=== PATIENT | female | born 1970 | race American Indian/Alaskan Native ===

== ENCOUNTER 2016-08-05 10:18 | Observation (INO) | payer OTHER ==
--- NOTE | 2016-08-05 10:25 | EDM.PDOC ---
ED HISTORY OF PRESENT ILLNESS - General Chief Complaint: Neuro Symptoms/Deficits Stated Complaint: BY AMBULANCE Time Seen by Provider: 08/05/16 10:25 Source of Information: Reports: Patient, EMS, Old records, RN, RN notes reviewed History Limitations: Reports: No limitations - History of Present Illness INITIAL COMMENTS - FREE TEXT/NARRATIVE: Arrives from work by ambulance with c/o sudden onset of right facial droop with slurred speech, and right arm not "working right". Sx's were resolved by the time the ambulance arrived, but pt then had lower chest/epigastric pain with nausea and felt the need to belch. EMS gave Aspirin 324mg po x1 and Nitro. 0.4mg SL x2 without relief. Pt denies headache, dizziness, palpitations, or edema. Pt was symptom free on arrival to the ER. Symptom Onset Date: 08/05/16 Symptom Onset Time: 09:00 Timing/Duration: Reports: Resolved prior to arrival Location, General: Reports: face, upper extremity, right Improves with: Reports: None Worsens with: Reports: None Context, General: Denies: Activity, Exercise, Lifting, Sick contact, Trauma Associated Symptoms (General): Reports: no other symptoms Treatments GRAVEDIGGER: Reports: Aspirin, EKG, IV/IO, Nitroglycerin - Related Data Allergies/ADRs: Allergies Allergy/AdvReac Type Severity Reaction Status Date / Time sulfamethoxazole Allergy Stomach Verified 08/05/16 11:17 [From Bactrim] Upset trimethoprim [From Bactrim] Allergy Stomach Verified 08/05/16 11:17 Upset Home Meds: Home Meds . [No Known Home Meds] 05/26/16 [History] Past Medical History Endocrine/Metabolic History: Reports: Obesity/BMI 30+ - Infectious Disease History Infectious Disease History: Reports: Chicken pox, Mumps Social & Family History - Family History Cardiac: Reports: CAD (parents) Neurological: Reports: CVA (mother) - Tobacco Use Smoking Status *Q: Never Smoker Second Hand Smoke Exposure: No - Caffeine Use Caffeine Use: Reports: Soda - Alcohol Use Days Per Week of Alcohol Use: 0 - Recreational Drug Use Recreational Drug Use: No - Living Situation & Occupation Living situation: Reports: single, with family Occupation: employed ED ROS GENERAL - Review of Systems Review Of Systems: ROS reveals no pertinent complaints other than HPI. ED EXAM, GENERAL - Physical Exam Exam: See Below Exam Limited By: No limitations General Appearance: alert, WD/WN, no apparent distress, anxious, obese Eye Exam: bilateral eye: EOMI, normal fundi, normal inspection, PERRL Ears: normal external exam, normal canal, hearing grossly normal, normal TMs Nose: normal inspection, normal mucosa, no blood Throat/Mouth: Normal inspection, Normal lips, Normal teeth, Normal gums, Normal oropharynx, Normal voice, No airway compromise Head: atraumatic, normocephalic Neck: normal inspection, supple, non-tender, full range of motion Respiratory/Chest: no respiratory distress, lungs clear, normal breath sounds, no accessory muscle use, chest non-tender Cardiovascular: normal peripheral pulses, regular rate, rhythm, no edema, no gallop, no JVD, no murmur, no rub GI/Abdominal: normal bowel sounds, soft, non tender, no distention, other ( benign obese abdomen) (Female) Exam: Deferred Rectal (Female) Exam: Deferred Back Exam: normal inspection Extremities: normal inspection, normal range of motion, non-tender, normal capillary refill, no pedal edema Neurological: alert, oriented, CN II-XII intact, normal cognition, normal gait, no motor/sensory deficits Psychiatric: normal affect, normal mood, anxious Skin Exam: Warm, Dry, Intact, Normal color, No rash EKG INTERPRETATION EKG Date: 08/05/16 Time: 10:41 Rhythm: other (SR with ventricular trigeminy) Rate (beats/min): 74 [place]: normal P-wave: present QRS: normal ST-T: normal QT: normal Comparison: NA - no prior EKG EKG Interpretation Comments: No acute ischemic changes. Course - Vital Signs Last Recorded V/S: Last Vital Signs Temp 36.2 C 08/05/16 10:40 Pulse 76 08/05/16 11:46 Resp 16 08/05/16 11:46 BP 126/53 L 08/05/16 11:46 Pulse Ox 98 08/05/16 11:46 - Orders/Labs/Meds Orders: Active Orders 24 hr Category Date Time Status EKG 12 Lead [EKG Documentation Completion] [RC] STAT Care 08/05/16 10:25 Active Peripheral IV Care [RC] . DIRECTED Care 08/05/16 10:26 Active Chest 1V Frontal [CR] Stat Exams 08/05/16 10:25 Taken Head wo Cont [CT] Stat Exams 08/05/16 10:26 Taken Ondansetron [Zofran] Med 08/05/16 12:01 Once 4 mg IV ONETIME ONE Sodium Chloride 0.9% [Saline Flush] Med 08/05/16 10:25 Active 10 ml FLUSH ASDIRECTED PRN Peripheral IV Insertion Adult [OM.PC] Stat Oth 08/05/16 10:25 Ordered Medication Orders Sodium Chloride (Saline Flush) 10 ml FLUSH ASDIRECTED PRN PRN Reason: Keep Vein Open Last Admin: 08/05/16 10:48 Dose: 10 ml Labs: Laboratory Tests 08/05/16 08/05/16 08/05/16 Range/Units 10:45 10:45 10:45 WBC 9.7 (5.0-10.0) 10^3/uL RBC 4.52 (4.2-5.4) 10^6/uL Hgb 12.7 (12.0-16.0) g/dL Hct 40.0 (37.0-47.0) % MCV 88.5 (80-100) fL MCH 28.1 (27.0-34.0) pg MCHC 31.8 L (33.0-35.0) g/dL Plt Count 240 (150-450) 10^3/uL Neut % (Auto) 60.0 (42.2-75.2) % Lymph % (Auto) 28.8 (20.5-50.1) % [place] % (Auto) 9.0 H (2-8) % Eos % (Auto) 1.9 (1.0-3.0) % Baso % (Auto) 0.3 (0.0-1.0) % PT 10.5 (9.0-12.0) SEC INR 1.0 (0.9-1.2) APTT 32.4 (22.0-34.0) SEC D-Dimer, Quantitative 110 (0-400) ng/mL Sodium 139 (135-145) mmol/L Potassium 4.0 (3.6-5.0) mmol/L Chloride 101 (101-111) mmol/L Carbon Dioxide 31.0 (21.0-31.0) mmol/L Anion Gap 11.0 BUN 16 (7-18) mg/dL Creatinine 0.7 (0.6-1.3) mg/dL Est Cr Clr Drug Dosing 83.07 mL/min Estimated GFR (MDRD) > 60 BUN/Creatinine Ratio 22.85 Glucose 114 H (74-105) mg/dL Calcium 9.0 (8.4-10.2) mg/dl Total Bilirubin 0.4 (0.2-1.0) mg/dL AST 22 (10-42) IU/L ALT 19 (10-60) IU/L Alkaline Phosphatase 60 (42-121) IU/L Troponin I < 0.02 (0.00-0.02) ng/ml Total Protein 7.5 (6.7-8.2) g/dl Albumin 3.8 (3.2-5.5) g/dl Globulin 3.7 Albumin/Globulin Ratio 1.03 Urine Color (YELLOW) Urine Appearance (CLEAR) Urine pH (5.0-9.0) Ur Specific [place] (1.005-1.030) Urine Protein (NEGATIVE) Urine Glucose (UA) (NEGATIVE) Urine Ketones (NEGATIVE) Urine Occult Blood (NEGATIVE) Urine Nitrite (NEGATIVE) Urine Bilirubin (NEGATIVE) Urine Urobilinogen (0.2-1.0) mg/dL Ur Leukocyte Esterase (NEGATIVE) Urine RBC /HPF Urine WBC (0-5/HPF) /HPF Ur Epithelial Cells /HPF Urine Bacteria (0-FEW/HPF) /HPF Urine Mucus /LPF Urine HCG, Qual Urine Opiates Screen (NEGATIVE) Ur Oxycodone Screen (NEGATIVE) Urine Methadone Screen (NEGATIVE) Ur Barbiturates Screen (NEGATIVE) U Tricyclic Antidepress (NEGATIVE) Ur Phencyclidine Scrn (NEGATIVE) Ur Amphetamine Screen (NEGATIVE) U Methamphetamines Scrn (NEGATIVE) Urine MDMA Screen (NEGATIVE) U Benzodiazepines Scrn (NEGATIVE) Urine Cocaine Screen (NEGATIVE) U Marijuana (THC) Screen (NEGATIVE) Ethyl Alcohol < 5 mg/dL 08/05/16 08/05/16 08/05/16 Range/Units 11:00 11:00 11:00 WBC (5.0-10.0) 10^3/uL RBC (4.2-5.4) 10^6/uL Hgb (12.0-16.0) g/dL Hct (37.0-47.0) % MCV (80-100) fL MCH (27.0-34.0) pg MCHC (33.0-35.0) g/dL Plt Count (150-450) 10^3/uL Neut % (Auto) (42.2-75.2) % Lymph % (Auto) (20.5-50.1) % [place] % (Auto) (2-8) % Eos % (Auto) (1.0-3.0) % Baso % (Auto) (0.0-1.0) % PT (9.0-12.0) SEC INR (0.9-1.2) APTT (22.0-34.0) SEC D-Dimer, Quantitative (0-400) ng/mL Sodium (135-145) mmol/L Potassium (3.6-5.0) mmol/L Chloride (101-111) mmol/L Carbon Dioxide (21.0-31.0) mmol/L Anion Gap BUN (7-18) mg/dL Creatinine (0.6-1.3) mg/dL Est Cr Clr Drug Dosing mL/min Estimated GFR (MDRD) BUN/Creatinine Ratio Glucose (74-105) mg/dL Calcium (8.4-10.2) mg/dl Total Bilirubin (0.2-1.0) mg/dL AST (10-42) IU/L ALT (10-60) IU/L Alkaline Phosphatase (42-121) IU/L Troponin I (0.00-0.02) ng/ml Total Protein (6.7-8.2) g/dl Albumin (3.2-5.5) g/dl Globulin Albumin/Globulin Ratio Urine Color Yellow (YELLOW) Urine Appearance Cloudy (CLEAR) Urine pH 6.0 (5.0-9.0) Ur Specific [place] 1.025 (1.005-1.030) Urine Protein Negative (NEGATIVE) Urine Glucose (UA) Negative (NEGATIVE) Urine Ketones Negative (NEGATIVE) Urine Occult Blood Negative (NEGATIVE) Urine Nitrite Negative (NEGATIVE) Urine Bilirubin Negative (NEGATIVE) Urine Urobilinogen 0.2 (0.2-1.0) mg/dL Ur Leukocyte Esterase Negative (NEGATIVE) Urine RBC 0-5 /HPF Urine WBC 0-5 (0-5/HPF) /HPF Ur Epithelial Cells Many H /HPF Urine Bacteria Few (0-FEW/HPF) /HPF Urine Mucus Many H /LPF Urine HCG, Qual Negative Urine Opiates Screen Negative (NEGATIVE) Ur Oxycodone Screen Negative (NEGATIVE) Urine Methadone Screen Negative (NEGATIVE) Ur Barbiturates Screen Negative (NEGATIVE) U Tricyclic Antidepress Negative (NEGATIVE) Ur Phencyclidine Scrn Negative (NEGATIVE) Ur Amphetamine Screen Negative (NEGATIVE) U Methamphetamines Scrn Negative (NEGATIVE) Urine MDMA Screen Negative (NEGATIVE) U Benzodiazepines Scrn Negative (NEGATIVE) Urine Cocaine Screen Negative (NEGATIVE) U Marijuana (THC) Screen Negative (NEGATIVE) Ethyl Alcohol mg/dL Meds: Medications Generic Name Dose Route Start Last Admin Trade Name Freq PRN Reason Stop Dose Admin Sodium Chloride 10 ml 08/05/16 10:25 08/05/16 10:48 Saline Flush FLUSH 10 ml ASDIRECTED PRN Administration Keep Vein Open - Radiology Interpretation Free Text/Narrative:: CT Head: no acute process per Rad. report. CXR: no acute process per Rad. report. CT Results Date: 08/05/16 Departure - Departure Time of Disposition: 11:56 (admit to Dr. Argueta) Disposition: Refer to Observation Condition: undetermined Clinical Impression: TIA (transient ischemic attack) Qualifiers: Transient cerebral ischemia type: unspecified Qualified Code(s): G45.9 - Transient cerebral ischemic attack, unspecified Forms: ED Department Discharge - My Orders Last 24 Hours: My Active Orders 08/05/16 10:25 EKG 12 Lead [EKG Documentation Completion] [RC] STAT Chest 1V Frontal [CR] Stat Sodium Chloride 0.9% [Saline Flush] 10 ml FLUSH ASDIRECTED PRN Peripheral IV Insertion Adult [OM.PC] Stat 08/05/16 10:26 Peripheral IV Care [RC] . DIRECTED Head wo Cont [CT] Stat 08/05/16 12:01 Ondansetron [Zofran] 4 mg IV ONETIME ONE - Assessment/Plan Last 24 Hours: My Active Orders 08/05/16 10:25 EKG 12 Lead [EKG Documentation Completion] [RC] STAT Chest 1V Frontal [CR] Stat Sodium Chloride 0.9% [Saline Flush] 10 ml FLUSH ASDIRECTED PRN Peripheral IV Insertion Adult [OM.PC] Stat 08/05/16 10:26 Peripheral IV Care [RC] . DIRECTED Head wo Cont [CT] Stat 08/05/16 12:01 Ondansetron [Zofran] 4 mg IV ONETIME ONE
[2016-08-05] MEDS: Sodium Chloride 0.9% 10 ML Syringe FLUSH PRN ×2 (10:48→20:20)
[2016-08-05 11:12] LABS: CHLORIDE,CL 101 mmol/L (101-111); SODIUM,NA 139 mmol/L (135-145)
[2016-08-05] MEDS ORDERED: Ondansetron 4 MG/2 ML SDV IV ONE (12:01)
--- NOTE | 2016-08-05 13:19 | CT ---
CLINICAL HISTORY: 45-year-old female numb face, slurred speech and right arm weakness. SCAN TECHNIQUE: Volume acquisition of data from an emergency unenhanced CT scan of the head obtained with the patient lying supine on the Siemens multislice CT scanner [place], [place]. All data archived in the PACS system for storage and study (bone/brain windows). INTERPRETATION: Uniformly thick bony calvarium and dense calcifications falx over the convexity midl ine. No sign of skull fracture, underlying brain contusion or epidural/subdural hematoma. Symmetric clear pneumatization of the mastoid and paranasal sinuses. Nasal septum is straight in the midline. No supratentorial or posterior fossa mass lesion. No hydrocephalus. No focal areas of ischemic infarct or signs of intracerebral/intraventricular/subarachnoid bleed. Cerebellum and brainstem unremarkable. CONCLUSION: No sign of intracranial mass, ischemic infarct or acute intracranial bleed.
--- NOTE | 2016-08-05 13:19 | CR ---
CLINICAL HISTORY: 45-year-old female with chest pain, slurred speech and right arm weakness. INTERPRETATION: Negative exam. AP portable chest film confirms normal cardiac silhouette without alveolar edema or dependent effusi on. No lung mass, hilar lymphadenopathy or focal lobar pneumonia. No pneumothorax.
--- NOTE | 2016-08-05 13:53 | PCM.HP ---
H&P History of Present Illness - General Date of Service: 08/05/16 Admit Problem/Dx: Admission Diagnosis/Problem Admission Diagnosis/Problem Numbness of hand Source of Information: Patient - History of Present Illness Initial Comments - Free Text/Narative: Patient is a 45 year old females was admitted due to episode of numbness and tinling of the right upper extremity and the right side of the face. This happened around 9:30 am, she was just standing and suddenly her right upper extremity was numbness and tingling as well as the right side of the face. this spontaneously went away and then recurred, cannot recall the trigger. SHe was noted to be slurring her speech as well and was advised by a friend to go to ER. she denies history of similar symptoms. denies history of stroke. hypertension nor diabetes. denies recent head injury nor any neck pain. denies choking on food, denies similar symptom on the right lower leg, no weakness no recent falls. during the episode, she had episode of chest pain which also subsequently went away on its own. Middle Chest Pain Score (Numeric/FACES): 3 - Related Data Allergies/Adverse Reactions: Allergies Allergy/AdvReac Type Severity Reaction Status Date / Time sulfamethoxazole Allergy Stomach Verified 08/05/16 11:17 [From Bactrim] Upset trimethoprim [From Bactrim] Allergy Stomach Verified 08/05/16 11:17 Upset Home Medications: Home Meds . 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 MOUNTER History: Reports: None Musculoskeletal History: Reports: None Neurological History: Reports: Other (see below) Other Neuro History: powell's palsy Psychiatric History: Reports: None Endocrine/Metabolic History: Reports: Obesity/BMI 30+ Hematologic History: Reports: None Immunologic History: Reports: None Oncologic (Cancer) History: Reports: None Dermatologic History: Reports: Other (see below) Other Dermatologic History: rosacea - Infectious Disease History Infectious Disease History: Reports: Chicken pox, Mumps - Past Surgical History GI Surgical History: Reports: None Female Surgical History: Reports: None Musculoskeletal Surgical History: Reports: None Social & Family History - Family History Family Medical History: Noncontributory Cardiac: Reports: CAD, Stent Respiratory: Reports: None GI: Reports: None Neurological: Reports: CVA Endocrine/Metabolic: Reports: Diabetes, type II - Tobacco Use Smoking Status *Q: Never Smoker Second Hand Smoke Exposure: No - Caffeine Use Caffeine Use: Reports: Soda, Tea - Alcohol Use Days Per Week of Alcohol Use: 0 - Recreational Drug Use Recreational Drug Use: No - Living Situation & Occupation Living situation: Reports: single, with family Occupation: employed H&P Review of Systems - Review of Systems: Review Of Systems: See Below General: Reports: no symptoms HEENT: Reports: no symptoms Pulmonary: Reports: No Symptoms Cardiovascular: Reports: no symptoms Gastrointestinal: Reports: No symptoms 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: Reports: no symptoms Musculoskeletal: Reports: no symptoms Skin: Reports: no symptoms Neurological: Reports: Dizziness Exam - Exam Exam: See Below - Vital Signs Vital Signs: Last Vital Signs Temp 37.1 C 08/05/16 12:59 Pulse 72 08/05/16 12:59 Resp 20 08/05/16 12:59 BP 124/80 08/05/16 12:59 Pulse Ox 100 08/05/16 12:59 Weight: 123.649 kg - Exam General: alert, oriented Neck: supple Lungs: Clear to auscultation, Normal respiratory effort Cardiovascular: regular rate, other (occasional extra beats) Abdomen: normal bowel sounds, soft Extremities: normal inspection, edema (trace) Neurological: cranial nerves intact, other (no pronator drift, equal handgrip, equal sensation to touch) Neuro Extensive - Mental Status: alert, oriented x3, normal mood/affect, normal cognition, memory intact Neuro Extensive - Motor, Sensory, Reflexes: CN II-XII intact Psychiatric: alert, normal affect, normal mood - Patient Data Result Diagrams: 08/05/16 10:45 08/05/16 10:45 *Q Meaningful Use (ADM) - VTE *Q VTE Criteria *Q: - Stroke *Q Stroke Criteria *Q: - AMI *Q AMI Criteria *Q: Problem List Initiated/Reviewed/Updated: Yes Orders Last 24hrs: Active Orders 24 hr Category Date Time Status Patient Status [ADT] Routine ADT 08/05/16 12:59 Active Antiembolic Devices [RC] 08,20 Care 08/05/16 13:00 Active Cardiac Monitoring [RC] CONTINUOUS Care 08/05/16 13:00 Active Oxygen Therapy [RC] PRN Care 08/05/16 12:59 Active Up With Assistance [RC] ASDIRECTED Care 08/05/16 12:59 Active VTE/DVT Education [RC] PER UNIT ROUTINE Care 08/05/16 12:59 Active Vital Signs [RC] Q4H Care 08/05/16 12:59 Active OT Evaluation and Treatment [CONS] Routine Cons 08/05/16 13:08 Active Regular Diet [DIET] Diet 08/05/16 Dinner Active Carotid Comp [US] Routine Exams 08/05/16 13:00 Ordered Echo Comp wo Cont [US] Routine Exams 08/05/16 13:01 Ordered Enoxaparin [Lovenox] Med 08/06/16 09:00 Active 40 mg SUBCUT DAILY Antiembolic Hose [OM.PC] Per Unit Routine Oth 08/05/16 13:00 Ordered Medication Orders Enoxaparin Sodium (Lovenox) 40 mg SUBCUT DAILY THU Sodium Chloride (Saline Flush) 10 ml FLUSH ASDIRECTED PRN PRN Reason: Keep Vein Open Last Admin: 08/05/16 10:48 Dose: 10 ml Assessment/Plan Comment:: episode of right sided numbness and tingling which has resolved - consideration for TIA - BP controlled, random sugar mildy out of range - carotid dopples bilateral and echo ordered - swallowing evaluation to be done EKG abnormality - PVCs on bigeminy - cardiac telemetry - check magnesium DVT prophylaxis - lovenox
[2016-08-05] MEDS ORDERED: Aspirin 325 MG Tab PO ONE (16:20)
[2016-08-05] MEDS ORDERED: Enoxaparin 40 MG/0.4 ML Syringe SUBCUT ONE (18:49)
[2016-08-06 07:24] VITALS: BP 129/66
[2016-08-06] MEDS ORDERED: Aspirin 81 MG Tab.Chew PO SCH (08:00)
--- NOTE | 2016-08-06 08:18 | US ---
CLINICAL HISTORY: 45-year-old female with TIA symptomatology ("tingling" both hands). INTERPRETATION: No hemodynamically significant or surgical stenosis either common or internal caroti d artery. Isolated small atheromatous plaque with smooth surface identified at the origin of both internal car otid arteries. Normal antegrade vertebral artery flow present bilaterally. Peak systolic velocity right common carotid artery 128 cm/sec; right internal carotid artery 78 cm/s ec; and right external carotid artery 123 cm/sec. IC/CC ratio on the right 0.6. Peak systolic left common carotid artery 106 cm/sec; left internal carotid artery 75 cm/sec; and lef t external carotid artery 121 cm/sec. IC/CC ratio on the left 0.7. CONCLUSION: Minimal nonulcerated atheromatous plaque. No hemodynamically significant stenosis.
--- NOTE | 2016-08-06 08:47 | PCM.DCSUM1 ---
Discharge Summary - Hospital Course Free Text/Narrative:: the patient is a 45-year-old lady with a history of "extra beats" The patient presented with sudden onset of right upper extremity tingling associated with nausea and chest discomfort Symptoms have completely resolved The patient was admitted for close monitoring The patient remained stable had the occasional tingling in the bilateral arms but no motor deficit, no slurred speech, no headaches The patient on telemetry and had no significant arrhythmia other than PVCs The patient was recommended to start an aspirin Recommended to undergo MR I. of the brain and stress test as outpatient The patient's carotid ultrasound showed no significant stenosis Echocardiogram result is pending - followup with primary care physician for results The patient will be discharged in a stable condition Advised to return promptly if any neurological changes develop - Discharge Data Discharge Date: 08/06/16 Discharge Disposition: Home, Self-Care 01 Condition: Good - Patient Summary/Data Consults: Consultations 08/05/16 13:08 OT Evaluation and Treatment [CONS] Routine - Patient Instructions Diet: Heart Healthy Diet Activity: As Tolerated - Discharge Plan Prescriptions/Med Rec: Aspirin/Calcium Carbonate/Mag [Aspirin Buffered 325 mg Tab] 325 mg PO DAILY #30 tablet Home Medications: Home Meds Aspirin/Calcium Carbonate/Mag [Aspirin Buffered 325 mg Tab] 325 mg PO DAILY #30 tablet 08/06/16 [Rx] Referrals: PCP,Unobtain [Ordering Only Provider] - - General Info Date of Service: 08/06/16 Subjective Update: feeling well, no chest pain, no headache Head occasional feeling of tingling in bilateral extremities, no associated motor weakness Steady on her feet no chest pain, no shortness of breath - Review of Systems General: Denies: Fever Pulmonary: Denies: shortness of breath Cardiovascular: Denies: Chest Pain Gastrointestinal: Denies: Abdominal pain - Patient Data Vitals - Most Recent: Last Vital Signs Temp 36.2 C 08/06/16 07:00 Pulse 67 08/06/16 07:00 Resp 20 08/06/16 07:00 BP 129/66 08/06/16 07:00 Pulse Ox 98 08/06/16 07:00 Weight - Most Recent: 123.649 kg I&O - Last 24 hours: Intake & Output 08/05/16 08/06/16 08/06/16 22:59 06:59 14:59 Intake Total 510 Balance 510 Med Orders - Current: Current Medications Aspirin (Aspirin) 81 mg [facility] Last Admin: 08/06/16 08:40 Dose: 81 mg Enoxaparin Sodium (Lovenox) 40 mg SUBCUT DAILY [facility] Last Admin: 08/06/16 08:40 Dose: 40 mg Sodium Chloride (Saline Flush) 10 ml FLUSH ASDIRECTED PRN PRN Reason: Keep Vein Open Last Admin: 08/05/16 20:20 Dose: 10 ml Discontinued Medications Aspirin (Aspirin) 325 mg PO ONETIME ONE Stop: 08/05/16 16:21 Last Admin: 08/05/16 17:25 Dose: 325 mg Enoxaparin Sodium (Lovenox) 40 mg SUBCUT ONETIME ONE Stop: 08/05/16 18:50 Last Admin: 08/05/16 20:12 Dose: 40 mg Ondansetron HCl (Zofran) 4 mg IV ONETIME ONE Stop: 08/05/16 12:02 Last Admin: 08/05/16 12:09 Dose: 4 mg - Exam General: Reports: alert, oriented Neck: Reports: supple Lungs: Reports: Clear to auscultation, Normal respiratory effort Cardiovascular: Reports: Regular Rate, Other (occasional extra beat) Abdomen: Reports: bowel sounds present, soft, no tenderness Extremities: Reports: no edema Neurological: Reports: no new focal deficit, normal speech, sensation intact, cranial nerves intact Psy/Mental Status: Reports: alert, normal affect, normal mood *Q Meaningful Use (DIS) - VTE *Q VTE Criteria *Q: - Stroke *Q Stroke Criteria *Q: - AMI *Q AMI Criteria *Q:
[2016-08-06] MEDS ORDERED: Enoxaparin 40 MG/0.4 ML Syringe SUBCUT SCH (09:00)
--- NOTE | 2016-08-25 12:57 | EKG ---
08/05/2016- MILTON FARRAR - EKG done on a 45-year-old female showing sinus rhythm with heart rate of 74 beats per minute, normal intervals, PVCs noted. No acute ST-T wave changes. [facility] /[id number] MTDD
== END 2016-08-06 11:30 | disposition home or self-care (01) ==
LOC: DL.ED 10:18 → DL.MS 12:13 → UNDOADMOB 12:13 → DL.MS 12:59
PROVIDERS: ADMIT Internal Medicine; ATTEND Internal Medicine
DX: G45.9 Transient cerebral ischemic attack, unspecified (principal); E66.9 Obesity, unspecified; Z88.1 Allergy status to other antibiotic agents; Z88.2 Allergy status to sulfonamides; Z68.30 Body mass index [BMI] 30.0-30.9, adult; Z79.82 Long term (current) use of aspirin
CPT/HCPCS: 36415; 70450; 71010; 80053; 80305; 81001; 81025; 82962; 83735; 84443; 84484; 85025; 85379; 85610; 85730; 92610; 93005; 93306; 93880; 94010; 96374; 99285; A9270; G0480; J1650; J2405; J7050; 96372; G0378

== ENCOUNTER 2016-08-17 10:00 | Emergency (ER) | payer OTHER ==
--- NOTE | 2016-08-17 10:04 | EDM.PDOC ---
ED HPI GENERAL MEDICAL PROBLEM - General Stated Complaint: BY AMBULANCE Time Seen by Provider: 08/17/16 09:53 Source of Information: Reports: Patient History Limitations: Reports: No Limitations - History of Present Illness INITIAL COMMENTS - FREE TEXT/NARRATIVE: This 45 yo female patient reports to the ED with right sided facial numbness. The patient reports her symptoms started at about 0900 this morning. The patient also reports chest pain 4/10 initially, but did not report chest pain upon arrival in the ED. This patient reports she has been having intermittent similar symptoms over the past week, but they have been more focused on the right arm. The patient reports she has had a carotid ultrasound, a cardiac stress test and an MRI. The patient reports her results are supposed to be back this week. The patient reports some chest "heaviness". The patient was given 1 dose of Nitro by EMS. The patient reports she did take her Aspirin (325). Onset: Today Onset Date: 08/17/16 Onset Time: 09:00 Duration: Constant Location: Reports: Face (right side facial tingling), Chest (4/10 with nausea) Quality: Reports: Dull Severity: Moderate Improves with: Reports: None Worsens with: Reports: None Associated Symptoms: Reports: Chest Pain, Nausea/Vomiting, Other (Tingling on the right side of face) Middle Chest Pain Score (Numeric/FACES): 3 - Related Data Allergies Allergy/AdvReac Type Severity Reaction Status Date / Time sulfamethoxazole Allergy Stomach Verified 08/17/16 10:02 [From Bactrim] Upset trimethoprim [From Bactrim] Allergy Stomach Verified 08/17/16 10:02 Upset Home Meds: Home Meds Aspirin/Calcium Carbonate/Mag [Aspirin Buffered 325 mg Tab] 325 mg PO DAILY #30 tablet 08/06/16 [Rx] Past Medical History Cardiovascular History: Reports: Other (See Below) Other Cardiovascular History: ventricular trigeminy Respiratory History: Reports: None Gastrointestinal History: Reports: None 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 History: Reports: None [employer]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 Musculoskeletal History: Reports: None Neurological History: Reports: Other (See Below) Other Neuro History: powell's palsy Psychiatric History: Reports: None Endocrine/Metabolic History: Reports: Obesity/BMI 30+ Hematologic History: Reports: None Immunologic History: Reports: None Oncologic (Cancer) History: Reports: None Dermatologic History: Reports: Other (See Below) Other Dermatologic History: rosacea - Infectious Disease History Infectious Disease History: Reports: Chicken Pox, Mumps - Past Surgical History GI Surgical History: Reports: None Female Surgical History: Reports: None Musculoskeletal Surgical History: Reports: None Social & Family History - Family History Family Medical History: Noncontributory Cardiac: Reports: CAD, Stent Respiratory: Reports: None GI: Reports: None Neurological: Reports: CVA Endocrine/Metabolic: Reports: Diabetes, type II - Tobacco Use Smoking Status *Q: Never Smoker Second Hand Smoke Exposure: No - Caffeine Use Caffeine Use: Reports: Soda, Tea - Alcohol Use Days Per Week of Alcohol Use: 0 - Recreational Drug Use Recreational Drug Use: No - Living Situation & Occupation Living situation: Reports: Single, with Family Occupation: Employed ED ROS GENERAL - Review of Systems Review Of Systems: ROS reveals no pertinent complaints other than HPI. ED EXAM, NEURO - Physical Exam Exam: See Below Exam Limited By: No Limitations General Appearance: Alert, WD/WN, Anxious, Moderate Distress Eye Exam: Bilateral Eye: EOMI, Normal Inspection, PERRL Ears: Normal External Exam, Normal Canal, Hearing Grossly Normal, Normal TMs Nose: Normal Inspection, Normal Mucosa, No Blood Throat/Mouth: Normal Inspection, Normal Lips, Normal Teeth, Normal Gums, Normal Oropharynx, Normal Voice, No Airway Compromise Head Exam: Atraumatic, Normocephalic Neck: Normal Inspection, Supple, Non-Tender, Full Range of Motion Respiratory/Chest: No Respiratory Distress, Lungs Clear, Normal Breath Sounds, No Accessory Muscle Use, Chest Non-Tender Cardiovascular: No Edema, No Gallop, No JVD, No Murmur, No Rub, Other (Trigeminy ) GI/Abdominal: Normal Bowel Sounds, Soft, Non-Tender, No Organomegaly, No Distention, No Abnormal Bruit, No Mass, Other (obese) (Female) Exam: Deferred Rectal (Female) Exam: Deferred Neurological: Alert, Normal Mood/Affect, Normal Dorsiflexion, CN II-XII Intact, Normal Plantar Flexion, Oriented x 3 Back Exam: Normal Inspection, Full Range of Motion, NT Extremities: Normal Inspection, Normal Range of Motion, Non-Tender, No Pedal Edema, Normal Capillary Refill Psychiatric: Anxious, Flat Affect Skin Exam: Warm, Dry, Intact, Normal Color, No Rash Course - Vital Signs Last Recorded V/S: Last Vital Signs Temp 35.4 C 08/17/16 11:16 Pulse 80 08/17/16 11:16 Resp 21 H 08/17/16 11:16 BP 115/68 08/17/16 11:16 Pulse Ox 100 08/17/16 11:16 - Orders/Labs/Meds Orders: Active Orders 24 hr Category Date Time Status EKG Documentation Completion [RC] URGENT Care 08/17/16 09:46 Active Labs: Laboratory Tests 08/17/16 08/17/16 08/17/16 Range/Units 09:52 10:12 10:12 WBC 9.5 (5.0-10.0) 10^3/uL RBC 4.51 (4.2-5.4) 10^6/uL Hgb 12.6 (12.0-16.0) g/dL Hct 39.7 (37.0-47.0) % MCV 88.0 (80-100) fL MCH 27.9 (27.0-34.0) pg MCHC 31.7 L (33.0-35.0) g/dL Plt Count 228 (150-450) 10^3/uL Neut % (Auto) 63.4 (42.2-75.2) % Lymph % (Auto) 26.3 (20.5-50.1) % [place] % (Auto) 8.4 H (2-8) % Eos % (Auto) 1.7 (1.0-3.0) % Baso % (Auto) 0.2 (0.0-1.0) % PT 9.8 (9.0-12.0) SEC INR 1.0 (0.9-1.2) D-Dimer, Quantitative < 100 (0-400) ng/mL Sodium (135-145) mmol/L Potassium (3.6-5.0) mmol/L Chloride (101-111) mmol/L Carbon Dioxide (21.0-31.0) mmol/L Anion Gap BUN (7-18) mg/dL Creatinine (0.6-1.3) mg/dL Est Cr Clr Drug Dosing mL/min Estimated GFR (MDRD) BUN/Creatinine Ratio Glucose (74-105) mg/dL POC Glucose 106 H (70-105) mg/dl Calcium (8.4-10.2) mg/dl Total Bilirubin (0.2-1.0) mg/dL AST (10-42) IU/L ALT (10-60) IU/L Alkaline Phosphatase (42-121) IU/L Troponin I (0.00-0.02) ng/ml Total Protein (6.7-8.2) g/dl Albumin (3.2-5.5) g/dl Globulin Albumin/Globulin Ratio Urine Color (YELLOW) Urine Appearance (CLEAR) Urine pH (5.0-9.0) Ur Specific [place] (1.005-1.030) Urine Protein (NEGATIVE) Urine Glucose (UA) (NEGATIVE) Urine Ketones (NEGATIVE) Urine Occult Blood (NEGATIVE) Urine Nitrite (NEGATIVE) Urine Bilirubin (NEGATIVE) Urine Urobilinogen (0.2-1.0) mg/dL Ur Leukocyte Esterase (NEGATIVE) Urine RBC /HPF Urine WBC (0-5/HPF) /HPF Ur Epithelial Cells /HPF Urine Mucus /LPF 08/17/16 08/17/16 Range/Units 10:12 10:38 WBC (5.0-10.0) 10^3/uL RBC (4.2-5.4) 10^6/uL Hgb (12.0-16.0) g/dL Hct (37.0-47.0) % MCV (80-100) fL MCH (27.0-34.0) pg MCHC (33.0-35.0) g/dL Plt Count (150-450) 10^3/uL Neut % (Auto) (42.2-75.2) % Lymph % (Auto) (20.5-50.1) % [place] % (Auto) (2-8) % Eos % (Auto) (1.0-3.0) % Baso % (Auto) (0.0-1.0) % PT (9.0-12.0) SEC INR (0.9-1.2) D-Dimer, Quantitative (0-400) ng/mL Sodium 134 L (135-145) mmol/L Potassium 3.4 L (3.6-5.0) mmol/L Chloride 101 (101-111) mmol/L Carbon Dioxide 27.0 (21.0-31.0) mmol/L Anion Gap 9.4 BUN 16 (7-18) mg/dL Creatinine 0.7 (0.6-1.3) mg/dL Est Cr Clr Drug Dosing 83.04 mL/min Estimated GFR (MDRD) > 60 BUN/Creatinine Ratio 22.85 Glucose 111 H (74-105) mg/dL POC Glucose (70-105) mg/dl Calcium 8.7 (8.4-10.2) mg/dl Total Bilirubin 0.3 (0.2-1.0) mg/dL AST 19 (10-42) IU/L ALT 17 (10-60) IU/L Alkaline Phosphatase 57 (42-121) IU/L Troponin I < 0.02 (0.00-0.02) ng/ml Total Protein 7.2 (6.7-8.2) g/dl Albumin 3.7 (3.2-5.5) g/dl Globulin 3.5 Albumin/Globulin Ratio 1.06 Urine Color Yellow (YELLOW) Urine Appearance Slightly cloudy (CLEAR) Urine pH 6.0 (5.0-9.0) Ur Specific [place] 1.020 (1.005-1.030) Urine Protein Negative (NEGATIVE) Urine Glucose (UA) Negative (NEGATIVE) Urine Ketones Negative (NEGATIVE) Urine Occult Blood Negative (NEGATIVE) Urine Nitrite Negative (NEGATIVE) Urine Bilirubin Negative (NEGATIVE) Urine Urobilinogen 0.2 (0.2-1.0) mg/dL Ur Leukocyte Esterase Trace H (NEGATIVE) Urine RBC Not seen /HPF Urine WBC 0-5 (0-5/HPF) /HPF Ur Epithelial Cells Moderate H /HPF Urine Mucus Rare /LPF Departure - Departure Time of Disposition: 11:20 Disposition: Home, Self-Care 01 Condition: fair Clinical Impression: Chest heaviness, Numbness and tingling of right side of face - Discharge Information Forms: Interfacility Transfer EMTALA Care Plan Goals: Discussed the history, examination, lab results, EKG results and CT results were discussed with Dr. Pratt. Dr. Pratt accepted the patient for continued evaluation and treatment as an inpatient at [facility] in [place]. The patient will be transported by [facility]. - My Orders Last 24 Hours: My Active Orders 08/17/16 09:46 EKG Documentation Completion [RC] URGENT - Assessment/Plan Last 24 Hours: My Active Orders 08/17/16 09:46 EKG Documentation Completion [RC] URGENT
--- NOTE | 2016-08-17 10:20 | CR ---
Clinical history: 45-year-old female evaluated for stroke protocol (right facial "tingling"). Interpretation: Negative AP chest film. Normal cardiac silhouette and bony thorax. No alveolar edema or dependent effusion. Reasonable inspiratory effort obese female reveals no sign of lung mass, hilar lymphadenopathy, foca l lobar pneumonia or atelectasis/collapse. No pneumothorax.
--- NOTE | 2016-08-17 10:23 | CT ---
Clinical history: 45-year-old obese female right facial tingling. TECHNIQUE: Volume acquisition of data emergency unenhanced CT scan of the head and brain obtained [facility] patient lying supine on the Siemens multi slice CT scanner [facility]. All data archived in the PACS system for storage, reformatting and study. Interpretation: Uniformly thick bony calvarium without sign of fracture, underlying brain contusion or epidural/subdural hematoma. Dense falx calcifications midline high on the convexity. Physiologic midline pineal and symmetric choroid plexus calcifications. Symmetric clear pneumatization of the mastoid and paranasal sinuses. Symmetric aguirre-white matter pattern and underlying mirror-image normal ventricular system. No supratentorial or posterior fossa mass lesion. No focal areas of ischemic infarct. No sign of acu te intracerebral/intraventricular/subarachnoid bleed CONCLUSION: Negative unenhanced CT scan of the head.
[2016-08-17 10:40] LABS: CHLORIDE,CL 101 mmol/L (101-111); SODIUM,NA 134 mmol/L (135-145)
[2016-08-17 11:17] VITALS: BP 115/68
--- NOTE | 2016-08-18 13:57 | EKG ---
08/17/2016 - MILTON FARRAR I reviewed EKG and agree with the machine's reading. [facility] /[id number]
== END 2016-08-17 12:00 | disposition home or self-care (01) ==
LOC: DL.ED 10:00
DX: R07.89 Other chest pain (principal); R20.0 Anesthesia of skin; R20.2 Paresthesia of skin; E66.9 Obesity, unspecified; Z88.2 Allergy status to sulfonamides; Z79.82 Long term (current) use of aspirin
CPT/HCPCS: 36415; 70450; 71010; 80053; 81001; 82962; 84484; 85025; 85379; 85610; 93005; 99285

== ENCOUNTER 2016-08-29 21:38 | Emergency (ER) | payer OTHER ==
[2016-08-29 22:48] LABS: CHLORIDE,CL 104 mmol/L (101-111); SODIUM,NA 140 mmol/L (135-145)
[2016-08-29 23:08] VITALS: BP 129/65
--- NOTE | 2016-08-29 23:36 | EDM.PDOC ---
ED HPI GENERAL MEDICAL PROBLEM - General Chief Complaint: Neuro Symptoms/Deficits Stated Complaint: EYE PROBLEMS, [id number] Time Seen by Provider: 08/29/16 23:30 Source of Information: Reports: Patient History Limitations: Reports: No Limitations - History of Present Illness INITIAL COMMENTS - FREE TEXT/NARRATIVE: pt states was admitted in [facility] for this problem of TIA/stroke Sx. had w/u and eval ' by Dr Fuller neurologist and d/c home. states she had the right side numbness & tingling & dazed feeling with right REYNOLDS @ [facility] but all they did was put her on plavix. at home her numbness went away but her dazed feelings persisted till tonight when the right sided tingling with numbess and REYNOLDS returned. so came here. states had scheduled her for repeat EEG & MRI in September 08 but doesn't wan to wait till then. 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 Musculoskeletal History: Reports: None Neurological History: Reports: Other (See Below) Other Neuro History: powell's palsy Psychiatric History: Reports: None Endocrine/Metabolic History: Reports: Obesity/BMI 30+ Hematologic History: Reports: None Immunologic History: Reports: None Oncologic (Cancer) History: Reports: None Dermatologic History: Reports: Other (See Below) Other Dermatologic History: rosacea - Infectious Disease History Infectious Disease History: Reports: Chicken Pox, Mumps - Past Surgical History GI Surgical History: Reports: None Female Surgical History: Reports: None Musculoskeletal Surgical History: Reports: None Social & Family History - Family History Family Medical History: Noncontributory Cardiac: Reports: CAD, Stent Respiratory: Reports: None GI: Reports: None Neurological: Reports: CVA Endocrine/Metabolic: Reports: Diabetes, type II - Tobacco Use Smoking Status *Q: Never Smoker Second Hand Smoke Exposure: No - Caffeine Use Caffeine Use: Reports: Soda, Tea - Alcohol Use Days Per Week of Alcohol Use: 0 - Recreational Drug Use Recreational Drug Use: No - Living Situation & Occupation Living situation: Reports: Single, with Family Occupation: Employed ED ROS GENERAL - Review of Systems Review Of Systems: ROS reveals no pertinent complaints other than HPI. ED EXAM, NEURO - Physical Exam Exam: See Below Exam Limited By: No Limitations General Appearance: Alert, WD/WN, Mild Distress, Other (distraught) Eye Exam: Bilateral Eye: PERRL (pupils ess ER @ 4mm) Ears: Hearing Grossly Normal Throat/Mouth: Normal Voice, No Airway Compromise Head Exam: Atraumatic Neck: Non-Tender, Full Range of Motion Respiratory/Chest: No Respiratory Distress Cardiovascular: Regular Rate, Rhythm GI/Abdominal: Soft, Non-Tender Neurological: Alert, Normal Gait, No Motor/Sensory Deficits, Oriented x 3 Psychiatric: Flat Affect Skin Exam: Warm, Dry Course - Vital Signs Last Recorded V/S: Last Vital Signs Temp 35.9 C 08/29/16 21:55 Pulse 80 08/29/16 21:55 Resp 16 08/29/16 21:55 BP 129/65 08/29/16 21:55 Pulse Ox 100 08/29/16 21:55 - Orders/Labs/Meds Orders: Active Orders 24 hr Category Date Time Status Head wo Cont [CT] Urgent Exams 08/29/16 22:02 Taken Labs: Laboratory Tests 08/29/16 08/29/16 08/29/16 Range/Units 22:16 22:16 22:16 WBC 11.4 H (5.0-10.0) 10^3/uL RBC 4.31 (4.2-5.4) 10^6/uL Hgb 12.3 (12.0-16.0) g/dL Hct 38.3 (37.0-47.0) % MCV 88.9 (80-100) fL MCH 28.5 (27.0-34.0) pg MCHC 32.1 L (33.0-35.0) g/dL Plt Count 262 (150-450) 10^3/uL Neut % (Auto) 60.8 (42.2-75.2) % Lymph % (Auto) 28.1 (20.5-50.1) % [place] % (Auto) 8.2 H (2-8) % Eos % (Auto) 2.6 (1.0-3.0) % Baso % (Auto) 0.3 (0.0-1.0) % PT 10.3 (9.0-12.0) SEC INR 1.0 (0.9-1.2) APTT 31.3 (22.0-34.0) SEC Sodium 140 (135-145) mmol/L Potassium 4.2 (3.6-5.0) mmol/L Chloride 104 (101-111) mmol/L Carbon Dioxide 29.0 (21.0-31.0) mmol/L Anion Gap 11.2 BUN 20 H (7-18) mg/dL Creatinine 0.7 (0.6-1.3) mg/dL Est Cr Clr Drug Dosing TNP Estimated GFR (MDRD) > 60 BUN/Creatinine Ratio 28.57 Glucose 110 H (74-105) mg/dL POC Glucose (70-105) mg/dl Calcium 9.2 (8.4-10.2) mg/dl Total Bilirubin 0.3 (0.2-1.0) mg/dL AST 20 (10-42) IU/L ALT 17 (10-60) IU/L Alkaline Phosphatase 56 (42-121) IU/L Troponin I < 0.02 (0.00-0.02) ng/ml Total Protein 7.1 (6.7-8.2) g/dl Albumin 3.7 (3.2-5.5) g/dl Globulin 3.4 Albumin/Globulin Ratio 1.09 Urine Color (YELLOW) Urine Appearance (CLEAR) Urine pH (5.0-9.0) Ur Specific [place] (1.005-1.030) Urine Protein (NEGATIVE) Urine Glucose (UA) (NEGATIVE) Urine Ketones (NEGATIVE) Urine Occult Blood (NEGATIVE) Urine Nitrite (NEGATIVE) Urine Bilirubin (NEGATIVE) Urine Urobilinogen (0.2-1.0) mg/dL Ur Leukocyte Esterase (NEGATIVE) Urine RBC /HPF Urine WBC (0-5/HPF) /HPF Ur Epithelial Cells /HPF Urine Bacteria (0-FEW/HPF) /HPF Urine Mucus /LPF Urine HCG, Qual Urine Opiates Screen (NEGATIVE) Ur Oxycodone Screen (NEGATIVE) Urine Methadone Screen (NEGATIVE) Ur Barbiturates Screen (NEGATIVE) U Tricyclic Antidepress (NEGATIVE) Ur Phencyclidine Scrn (NEGATIVE) Ur Amphetamine Screen (NEGATIVE) U Methamphetamines Scrn (NEGATIVE) Urine MDMA Screen (NEGATIVE) U Benzodiazepines Scrn (NEGATIVE) Urine Cocaine Screen (NEGATIVE) U Marijuana (THC) Screen (NEGATIVE) 08/29/16 08/29/16 08/29/16 Range/Units 22:18 23:42 23:42 WBC (5.0-10.0) 10^3/uL RBC (4.2-5.4) 10^6/uL Hgb (12.0-16.0) g/dL Hct (37.0-47.0) % MCV (80-100) fL MCH (27.0-34.0) pg MCHC (33.0-35.0) g/dL Plt Count (150-450) 10^3/uL Neut % (Auto) (42.2-75.2) % Lymph % (Auto) (20.5-50.1) % [place] % (Auto) (2-8) % Eos % (Auto) (1.0-3.0) % Baso % (Auto) (0.0-1.0) % PT (9.0-12.0) SEC INR (0.9-1.2) APTT (22.0-34.0) SEC Sodium (135-145) mmol/L Potassium (3.6-5.0) mmol/L Chloride (101-111) mmol/L Carbon Dioxide (21.0-31.0) mmol/L Anion Gap BUN (7-18) mg/dL Creatinine (0.6-1.3) mg/dL Est Cr Clr Drug Dosing Estimated GFR (MDRD) BUN/Creatinine Ratio Glucose (74-105) mg/dL POC Glucose 104 (70-105) mg/dl Calcium (8.4-10.2) mg/dl Total Bilirubin (0.2-1.0) mg/dL AST (10-42) IU/L ALT (10-60) IU/L Alkaline Phosphatase (42-121) IU/L Troponin I (0.00-0.02) ng/ml Total Protein (6.7-8.2) g/dl Albumin (3.2-5.5) g/dl Globulin Albumin/Globulin Ratio Urine Color Dark yellow (YELLOW) Urine Appearance Slightly cloudy (CLEAR) Urine pH 6.0 (5.0-9.0) Ur Specific [place] 1.025 (1.005-1.030) Urine Protein Negative (NEGATIVE) Urine Glucose (UA) Negative (NEGATIVE) Urine Ketones Negative (NEGATIVE) Urine Occult Blood Large H (NEGATIVE) Urine Nitrite Negative (NEGATIVE) Urine Bilirubin Negative (NEGATIVE) Urine Urobilinogen 1.0 (0.2-1.0) mg/dL Ur Leukocyte Esterase Trace H (NEGATIVE) Urine RBC 50-75 H /HPF Urine WBC 5-10 H (0-5/HPF) /HPF Ur Epithelial Cells Few /HPF Urine Bacteria Rare (0-FEW/HPF) /HPF Urine Mucus Few H /LPF Urine HCG, Qual Negative Urine Opiates Screen (NEGATIVE) Ur Oxycodone Screen (NEGATIVE) Urine Methadone Screen (NEGATIVE) Ur Barbiturates Screen (NEGATIVE) U Tricyclic Antidepress (NEGATIVE) Ur Phencyclidine Scrn (NEGATIVE) Ur Amphetamine Screen (NEGATIVE) U Methamphetamines Scrn (NEGATIVE) Urine MDMA Screen (NEGATIVE) U Benzodiazepines Scrn (NEGATIVE) Urine Cocaine Screen (NEGATIVE) U Marijuana (THC) Screen (NEGATIVE) 08/29/16 Range/Units 23:42 WBC (5.0-10.0) 10^3/uL RBC (4.2-5.4) 10^6/uL Hgb (12.0-16.0) g/dL Hct (37.0-47.0) % MCV (80-100) fL MCH (27.0-34.0) pg MCHC (33.0-35.0) g/dL Plt Count (150-450) 10^3/uL Neut % (Auto) (42.2-75.2) % Lymph % (Auto) (20.5-50.1) % [place] % (Auto) (2-8) % Eos % (Auto) (1.0-3.0) % Baso % (Auto) (0.0-1.0) % PT (9.0-12.0) SEC INR (0.9-1.2) APTT (22.0-34.0) SEC Sodium (135-145) mmol/L Potassium (3.6-5.0) mmol/L Chloride (101-111) mmol/L Carbon Dioxide (21.0-31.0) mmol/L Anion Gap BUN (7-18) mg/dL Creatinine (0.6-1.3) mg/dL Est Cr Clr Drug Dosing Estimated GFR (MDRD) BUN/Creatinine Ratio Glucose (74-105) mg/dL POC Glucose (70-105) mg/dl Calcium (8.4-10.2) mg/dl Total Bilirubin (0.2-1.0) mg/dL AST (10-42) IU/L ALT (10-60) IU/L Alkaline Phosphatase (42-121) IU/L Troponin I (0.00-0.02) ng/ml Total Protein (6.7-8.2) g/dl Albumin (3.2-5.5) g/dl Globulin Albumin/Globulin Ratio Urine Color (YELLOW) Urine Appearance (CLEAR) Urine pH (5.0-9.0) Ur Specific [place] (1.005-1.030) Urine Protein (NEGATIVE) Urine Glucose (UA) (NEGATIVE) Urine Ketones (NEGATIVE) Urine Occult Blood (NEGATIVE) Urine Nitrite (NEGATIVE) Urine Bilirubin (NEGATIVE) Urine Urobilinogen (0.2-1.0) mg/dL Ur Leukocyte Esterase (NEGATIVE) Urine RBC /HPF Urine WBC (0-5/HPF) /HPF Ur Epithelial Cells /HPF Urine Bacteria (0-FEW/HPF) /HPF Urine Mucus /LPF Urine HCG, Qual Urine Opiates Screen Negative (NEGATIVE) Ur Oxycodone Screen Negative (NEGATIVE) Urine Methadone Screen Negative (NEGATIVE) Ur Barbiturates Screen Negative (NEGATIVE) U Tricyclic Antidepress Negative (NEGATIVE) Ur Phencyclidine Scrn Negative (NEGATIVE) Ur Amphetamine Screen Negative (NEGATIVE) U Methamphetamines Scrn Negative (NEGATIVE) Urine MDMA Screen Negative (NEGATIVE) U Benzodiazepines Scrn Negative (NEGATIVE) Urine Cocaine Screen Negative (NEGATIVE) U Marijuana (THC) Screen Negative (NEGATIVE) - Re-Assessments/Exams Free Text/Narrative Re-Assessment/Exam: 08/29/16 23:37 negative results discussed with Pt who is not happy about it. 08/30/16 00:40 case discussed with [facility] and Dr Kennedy kindly accepted the tranferr. Departure - Departure Time of Disposition: 00:41 Disposition: DC/Tfer to Acute Hospital 02 Condition: good Clinical Impression: Numbness, Numbness and tingling of right side of face - Discharge Information Forms: Interfacility Transfer EMTALA - My Orders Last 24 Hours: My Active Orders 08/29/16 22:02 Head wo Cont [CT] Urgent - Assessment/Plan Last 24 Hours: My Active Orders 08/29/16 22:02 Head wo Cont [CT] Urgent
--- NOTE | 2016-09-02 10:51 | EKG ---
08/29/2016- MILTON FARRAR - EKG per my reading shows sinus rhythm with PVCs. [facility] /[id number]
== END 2016-08-30 01:20 ==
LOC: DL.ED 21:38
DX: R20.0 Anesthesia of skin (principal); R20.2 Paresthesia of skin; Z88.2 Allergy status to sulfonamides; Z88.8 Allergy status to other drugs, medicaments and biological substances; E66.9 Obesity, unspecified
CPT/HCPCS: 36415; 70450; 80053; 80305; 81001; 81025; 82962; 84484; 85025; 85610; 85730; 93005; 99285

== ENCOUNTER 2016-09-11 12:07 | Emergency (ER) | payer OTHER ==
--- NOTE | 2016-09-11 12:24 | EDM.PDOC ---
ED HPI GENERAL MEDICAL PROBLEM - General Chief Complaint: Neurological Problem Stated Complaint: BY AMBULANCE Time Seen by Provider: 09/11/16 12:23 Source of Information: Reports: Patient, Old Records, RN, RN Notes Reviewed History Limitations: Reports: No Limitations - History of Present Illness INITIAL COMMENTS - FREE TEXT/NARRATIVE: Arrives by ambulance with c/o a brief "seizure-like episode" while at work today. Pt has had several of these types of events and has recently undergone extensive neuro. evaluation with Dr. Fuller in [place]. On 09/08/16 pt had an EEG that was normal. On arrival to the ER pt is Sx free. Denies injury. Onset: Today Duration: Resolved Prior to Arrival Location: Reports: Head, Face Severity: Mild Improves with: Reports: None Worsens with: Reports: None Associated Symptoms: Reports: No Other Symptoms Right Headache Pain Score (Numeric/FACES): 4 - Related Data Allergies Allergy/AdvReac Type Severity Reaction Status Date / Time sulfamethoxazole Allergy Stomach Verified 08/17/16 10:02 [From Bactrim] Upset trimethoprim [From Bactrim] Allergy Stomach Verified 08/17/16 10:02 Upset Home Meds: Home Meds Clopidogrel [Plavix] 75 mg PO DAILY 08/29/16 [History] Topiramate [Topamax] 25 mg PO ASDIRECTED 09/11/16 [History] Past Medical History Cardiovascular History: Reports: Other (See Below) Other Cardiovascular History: ventricular trigeminy Respiratory History: Reports: None Gastrointestinal History: Reports: None 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 History: Reports: None 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 Musculoskeletal History: Reports: None Neurological History: Reports: Other (See Below) Other Neuro History: powell's palsy Psychiatric History: Reports: None Endocrine/Metabolic History: Reports: Obesity/BMI 30+ Hematologic History: Reports: None Immunologic History: Reports: None Oncologic (Cancer) History: Reports: None Dermatologic History: Reports: Other (See Below) Other Dermatologic History: rosacea - Infectious Disease History Infectious Disease History: Reports: Chicken Pox, Mumps - Past Surgical History GI Surgical History: Reports: None Female Surgical History: Reports: None Musculoskeletal Surgical History: Reports: None Social & Family History - Family History Family Medical History: Noncontributory Cardiac: Reports: CAD, Stent Respiratory: Reports: None GI: Reports: None Neurological: Reports: CVA Endocrine/Metabolic: Reports: Diabetes, type II - Tobacco Use Smoking Status *Q: Never Smoker Second Hand Smoke Exposure: No - Caffeine Use Caffeine Use: Reports: Soda, Tea - Alcohol Use Days Per Week of Alcohol Use: 0 - Recreational Drug Use Recreational Drug Use: No - Living Situation & Occupation Living situation: Reports: Single, with Family Occupation: Employed ED ROS GENERAL - Review of Systems Review Of Systems: ROS reveals no pertinent complaints other than HPI. - Physical Exam Exam: See Below Exam Limited By: No Limitations General Appearance: Alert, WD/WN, No Apparent Distress, Obese Eye Exam: Bilateral Eye: EOMI, Normal Fundi, Normal Inspection, PERRL Ears: Normal External Exam, Normal Canal, Hearing Grossly Normal, Normal TMs Nose: Normal Inspection, Normal Mucosa, No Blood Throat/Mouth: Normal Inspection, Normal Lips, Normal Teeth, Normal Gums, Normal Oropharynx, Normal Voice, No Airway Compromise Head Exam: Atraumatic, Normocephalic Neck: Normal Inspection, Supple, Non-Tender, Full Range of Motion Respiratory/Chest: No Respiratory Distress, Lungs Clear, Normal Breath Sounds, No Accessory Muscle Use, Chest Non-Tender Cardiovascular: Normal Peripheral Pulses, Regular Rate, Rhythm, No Edema, No Gallop, No JVD, No Murmur, No Rub GI/Abdominal: Normal Bowel Sounds, Soft, Non-Tender, No Distention Neuro Exam (Abbreviated): Alert, Oriented, CN II-XII Intact, Normal Cognition, Normal Gait, No Motor/Sensory Deficits Back Exam: Normal Inspection Extremities: Normal Inspection Psychiatric: Normal Affect, Normal Mood Skin Exam: Warm, Dry, Intact, Normal Color, No Rash EKG INTERPRETATION EKG Date: 09/11/16 Time: 12:27 Rhythm: other (SR) Rate (beats/min): 76 [place]: LAD-left axis deviation (borderline) P-wave: present QRS: normal ST-T: normal QT: normal Comparison: no change Course - Vital Signs Last Recorded V/S: Last Vital Signs Temp 36.3 C 09/11/16 12:20 Pulse 70 09/11/16 13:27 Resp 18 09/11/16 13:27 BP 122/55 L 09/11/16 13:27 Pulse Ox 99 09/11/16 13:27 - Orders/Labs/Meds Orders: Active Orders 24 hr Category Date Time Status EKG 12 Lead [EKG Documentation Completion] [RC] STAT Care 09/11/16 12:33 Active Peripheral IV Care [RC] . DIRECTED Care 09/11/16 12:33 Active Sodium Chloride 0.9% [Saline Flush] Med 09/11/16 12:33 Active 10 ml FLUSH ASDIRECTED PRN Peripheral IV Insertion Adult [OM.PC] Stat Oth 09/11/16 12:33 Ordered Medication Orders Sodium Chloride (Saline Flush) 10 ml FLUSH ASDIRECTED PRN PRN Reason: Keep Vein Open Last Admin: 09/11/16 12:51 Dose: 10 ml Labs: Laboratory Tests 09/11/16 09/11/16 09/11/16 Range/Units 12:43 12:43 12:48 WBC 7.5 (5.0-10.0) 10^3/uL RBC 4.42 (4.2-5.4) 10^6/uL Hgb 12.5 (12.0-16.0) g/dL Hct 39.5 (37.0-47.0) % MCV 89.4 (80-100) fL MCH 28.3 (27.0-34.0) pg MCHC 31.6 L (33.0-35.0) g/dL Plt Count 225 (150-450) 10^3/uL Neut % (Auto) 62.5 (42.2-75.2) % Lymph % (Auto) 23.6 (20.5-50.1) % [place] % (Auto) 10.0 H (2-8) % Eos % (Auto) 3.6 H (1.0-3.0) % Baso % (Auto) 0.3 (0.0-1.0) % Sodium (135-145) mmol/L Potassium (3.6-5.0) mmol/L Chloride (101-111) mmol/L Carbon Dioxide (21.0-31.0) mmol/L Anion Gap BUN (7-18) mg/dL Creatinine (0.6-1.3) mg/dL Est Cr Clr Drug Dosing mL/min Estimated GFR (MDRD) BUN/Creatinine Ratio Glucose (74-105) mg/dL Calcium (8.4-10.2) mg/dl Total Bilirubin (0.2-1.0) mg/dL AST (10-42) IU/L ALT (10-60) IU/L Alkaline Phosphatase (42-121) IU/L Lactate Dehydrogenase (91-180) IU/L Creatine Kinase (26-174) IU/L Total Protein (6.7-8.2) g/dl Albumin (3.2-5.5) g/dl Globulin Albumin/Globulin Ratio Urine Color Yellow (YELLOW) Urine Appearance Cloudy (CLEAR) Urine pH 8.5 (5.0-9.0) Ur Specific [place] 1.015 (1.005-1.030) Urine Protein Negative (NEGATIVE) Urine Glucose (UA) Negative (NEGATIVE) Urine Ketones Negative (NEGATIVE) Urine Occult Blood Negative (NEGATIVE) Urine Nitrite Negative (NEGATIVE) Urine Bilirubin Negative (NEGATIVE) Urine Urobilinogen 0.2 (0.2-1.0) mg/dL Ur Leukocyte Esterase Negative (NEGATIVE) Urine RBC 0-5 /HPF Urine WBC 0-5 (0-5/HPF) /HPF Ur Epithelial Cells Rare /HPF Amorphous Sediment Many H (0/HPF) /HPF Urine Bacteria Rare (0-FEW/HPF) /HPF Urine Opiates Screen Negative (NEGATIVE) Ur Oxycodone Screen Negative (NEGATIVE) Urine Methadone Screen Negative (NEGATIVE) Ur Barbiturates Screen Negative (NEGATIVE) U Tricyclic Antidepress Negative (NEGATIVE) Ur Phencyclidine Scrn Negative (NEGATIVE) Ur Amphetamine Screen Negative (NEGATIVE) U Methamphetamines Scrn Negative (NEGATIVE) Urine MDMA Screen Negative (NEGATIVE) U Benzodiazepines Scrn Negative (NEGATIVE) Urine Cocaine Screen Negative (NEGATIVE) U Marijuana (THC) Screen Negative (NEGATIVE) Ethyl Alcohol mg/dL 09/11/16 Range/Units 12:48 WBC (5.0-10.0) 10^3/uL RBC (4.2-5.4) 10^6/uL Hgb (12.0-16.0) g/dL Hct (37.0-47.0) % MCV (80-100) fL MCH (27.0-34.0) pg MCHC (33.0-35.0) g/dL Plt Count (150-450) 10^3/uL Neut % (Auto) (42.2-75.2) % Lymph % (Auto) (20.5-50.1) % [place] % (Auto) (2-8) % Eos % (Auto) (1.0-3.0) % Baso % (Auto) (0.0-1.0) % Sodium 137 (135-145) mmol/L Potassium 3.4 L (3.6-5.0) mmol/L Chloride 104 (101-111) mmol/L Carbon Dioxide 27.0 (21.0-31.0) mmol/L Anion Gap 9.4 BUN 13 (7-18) mg/dL Creatinine 0.7 (0.6-1.3) mg/dL Est Cr Clr Drug Dosing 83.07 mL/min Estimated GFR (MDRD) > 60 BUN/Creatinine Ratio 18.57 Glucose 148 H (74-105) mg/dL Calcium 8.8 (8.4-10.2) mg/dl Total Bilirubin 0.3 (0.2-1.0) mg/dL AST 25 (10-42) IU/L ALT 20 (10-60) IU/L Alkaline Phosphatase 63 (42-121) IU/L Lactate Dehydrogenase 138 (91-180) IU/L Creatine Kinase 61 (26-174) IU/L Total Protein 7.2 (6.7-8.2) g/dl Albumin 3.7 (3.2-5.5) g/dl Globulin 3.5 Albumin/Globulin Ratio 1.06 Urine Color (YELLOW) Urine Appearance (CLEAR) Urine pH (5.0-9.0) Ur Specific [place] (1.005-1.030) Urine Protein (NEGATIVE) Urine Glucose (UA) (NEGATIVE) Urine Ketones (NEGATIVE) Urine Occult Blood (NEGATIVE) Urine Nitrite (NEGATIVE) Urine Bilirubin (NEGATIVE) Urine Urobilinogen (0.2-1.0) mg/dL Ur Leukocyte Esterase (NEGATIVE) Urine RBC /HPF Urine WBC (0-5/HPF) /HPF Ur Epithelial Cells /HPF Amorphous Sediment (0/HPF) /HPF Urine Bacteria (0-FEW/HPF) /HPF Urine Opiates Screen (NEGATIVE) Ur Oxycodone Screen (NEGATIVE) Urine Methadone Screen (NEGATIVE) Ur Barbiturates Screen (NEGATIVE) U Tricyclic Antidepress (NEGATIVE) Ur Phencyclidine Scrn (NEGATIVE) Ur Amphetamine Screen (NEGATIVE) U Methamphetamines Scrn (NEGATIVE) Urine MDMA Screen (NEGATIVE) U Benzodiazepines Scrn (NEGATIVE) Urine Cocaine Screen (NEGATIVE) U Marijuana (THC) Screen (NEGATIVE) Ethyl Alcohol < 5 mg/dL Meds: Medications Generic Name Dose Route Start Last Admin Trade Name Freq PRN Reason Stop Dose Admin Sodium Chloride 10 ml 09/11/16 12:33 09/11/16 12:51 Saline Flush FLUSH 10 ml ASDIRECTED PRN Administration Keep Vein Open Departure - Departure Time of Disposition: 14:15 Disposition: Home, Self-Care 01 Condition: good Clinical Impression: Transient neurological symptoms - Discharge Information Instructions: Medical Screening Exam Forms: ED Department Discharge Additional Instructions: Continue current medications as prescribed. Follow up with Dr. Fuller for recheck. - My Orders Last 24 Hours: My Active Orders 09/11/16 12:33 EKG 12 Lead [EKG Documentation Completion] [RC] STAT Peripheral IV Care [RC] . DIRECTED Sodium Chloride 0.9% [Saline Flush] 10 ml FLUSH ASDIRECTED PRN Peripheral IV Insertion Adult [OM.PC] Stat - Assessment/Plan Last 24 Hours: My Active Orders 09/11/16 12:33 EKG 12 Lead [EKG Documentation Completion] [RC] STAT Peripheral IV Care [RC] . DIRECTED Sodium Chloride 0.9% [Saline Flush] 10 ml FLUSH ASDIRECTED PRN Peripheral IV Insertion Adult [OM.PC] Stat
[2016-09-11] MEDS ORDERED: Sodium Chloride 0.9% 10 ML Syringe FLUSH PRN (12:33)
[2016-09-11 13:18] LABS: CHLORIDE,CL 104 mmol/L (101-111); SODIUM,NA 137 mmol/L (135-145)
[2016-09-11 13:27] VITALS: BP 122/55
--- NOTE | 2016-09-16 13:23 | EKG ---
09/11/2016- MILTON FARRAR - EKG per my reading shows sinus rhythm with inferior Q waves at the rate of 76. [facility] /[id number]
== END 2016-09-11 14:42 | disposition home or self-care (01) ==
LOC: DL.ED 12:07
DX: R29.90 Unspecified symptoms and signs involving the nervous system (principal); E66.9 Obesity, unspecified; Z88.2 Allergy status to sulfonamides; Z88.1 Allergy status to other antibiotic agents; Z79.899 Other long term (current) drug therapy
CPT/HCPCS: 36415; 80053; 80305; 81001; 82550; 83615; 85025; 93005; 99284; G0480; J7050

== ENCOUNTER 2016-12-18 11:37 | Emergency (ER) | payer OTHER ==
[2016-12-18 11:22] VITALS: BP 136/61
--- NOTE | 2016-12-18 11:26 | EDM.PDOC ---
ED HPI GENERAL MEDICAL PROBLEM - General Chief Complaint: General Stated Complaint: SEIZURE. IN BY AMB Time Seen by Provider: 12/18/16 11:21 Source of Information: Reports: Patient History Limitations: Reports: No Limitations - History of Present Illness INITIAL COMMENTS - FREE TEXT/NARRATIVE: 46 yo white female c/o some right side facial eye twitching and tingling w/ nausea today when at work. Pt. states symptoms as previous. Onset: Today Onset Date: 12/18/16 Onset Time: 09:30 Duration: Hour(s):, Improving Location: Reports: Face Severity: Mild Improves with: Reports: None Worsens with: Reports: None - Related Data Allergies Allergy/AdvReac Type Severity Reaction Status Date / Time sulfamethoxazole Allergy Stomach Verified 12/18/16 11:12 [From Bactrim] Upset trimethoprim [From Bactrim] Allergy Stomach Verified 12/18/16 11:12 Upset Home Meds: Home Meds Clopidogrel [Plavix] 75 mg PO BEDTIME 08/29/16 [History] Past Medical History Cardiovascular History: Reports: Other (See Below) Other Cardiovascular History: ventricular trigeminy Respiratory History: Reports: None Gastrointestinal History: Reports: None 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 History: Reports: None 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 Musculoskeletal History: Reports: None Neurological History: Reports: Other (See Below) Other Neuro History: powell's palsy Psychiatric History: Reports: None Endocrine/Metabolic History: Reports: Obesity/BMI 30+ Hematologic History: Reports: None Immunologic History: Reports: None Oncologic (Cancer) History: Reports: None Dermatologic History: Reports: Other (See Below) Other Dermatologic History: rosacea - Infectious Disease History Infectious Disease History: Reports: Chicken Pox, Mumps - Past Surgical History GI Surgical History: Reports: None Female Surgical History: Reports: None Musculoskeletal Surgical History: Reports: None Social & Family History - Family History Family Medical History: Noncontributory Cardiac: Reports: CAD, Stent Respiratory: Reports: None GI: Reports: None Neurological: Reports: CVA Endocrine/Metabolic: Reports: Diabetes, type II - Tobacco Use Smoking Status *Q: Never Smoker Second Hand Smoke Exposure: No - Caffeine Use Caffeine Use: Reports: Soda, Tea - Alcohol Use Days Per Week of Alcohol Use: 0 - Recreational Drug Use Recreational Drug Use: No - Living Situation & Occupation Living situation: Reports: Single, with Family Occupation: Employed ED ROS GENERAL - Review of Systems Review Of Systems: See Below Constitutional: Reports: No Symptoms HEENT: Reports: No Symptoms Respiratory: Reports: No Symptoms Cardiovascular: Reports: No Symptoms Endocrine: Reports: No Symptoms GI/Abdominal: Reports: No Symptoms : Reports: No Symptoms Musculoskeletal: Reports: No Symptoms Skin: Reports: No Symptoms Neurological: Reports: Tingling (right side face) Psychiatric: Reports: No Symptoms Hematologic/Lymphatic: Reports: No Symptoms Immunologic: Reports: No Symptoms ED EXAM, NEURO - Physical Exam Exam: See Below Exam Limited By: No Limitations General Appearance: Alert, WD/WN, No Apparent Distress, Obese Eye Exam: Bilateral Eye: EOMI, PERRL Ears: Normal External Exam Nose: Normal Inspection Throat/Mouth: Normal Inspection Head Exam: Atraumatic Neck: Normal Inspection Respiratory/Chest: No Respiratory Distress, Lungs Clear Cardiovascular: Normal Peripheral Pulses, Regular Rate, Rhythm GI/Abdominal: Normal Bowel Sounds Neurological: Alert, Normal Mood/Affect, Normal Dorsiflexion, CN II-XII Intact, Normal Plantar Flexion, Abnormal Sensation (mild tingling to right side of face) , Other DTR: 2+: Bicep (R), Bicep (L), Tricep (R), Tricep (L) Back Exam: Normal Inspection Extremities: Normal Inspection, Normal Range of Motion Psychiatric: Normal Affect, Normal Mood Skin Exam: Warm, Dry, Intact Course - Vital Signs Text/Narrative:: Caswe discussed with Neurology Dr. Weldon Last Recorded V/S: Last Vital Signs Temp 36.8 C 12/18/16 11:18 Pulse 77 12/18/16 11:18 Resp 18 12/18/16 11:18 BP 136/61 12/18/16 11:18 Pulse Ox 100 12/18/16 11:18 - Orders/Labs/Meds Orders: Active Orders 24 hr Category Date Time Status DRUG SCREEN URINE BIORAD [URCHEM] Stat Lab 12/18/16 11:30 Received UA W/MICROSCOPIC [URIN] Stat Lab 12/18/16 11:30 Received Labs: Laboratory Tests 12/18/16 12/18/16 Range/Units 11:25 11:25 WBC 8.7 (5.0-10.0) 10^3/uL RBC 4.32 (4.2-5.4) 10^6/uL Hgb 12.0 (12.0-16.0) g/dL Hct 38.7 (37.0-47.0) % MCV 89.6 (80-100) fL MCH 27.8 (27.0-34.0) pg MCHC 31.0 L (33.0-35.0) g/dL Plt Count 242 (150-450) 10^3/uL Neut % (Auto) 61.5 (42.2-75.2) % Lymph % (Auto) 26.9 (20.5-50.1) % [place] % (Auto) 7.3 (2-8) % Eos % (Auto) 4.0 H (1.0-3.0) % Baso % (Auto) 0.3 (0.0-1.0) % Sodium 141 (135-145) mmol/L Potassium 4.0 (3.6-5.0) mmol/L Chloride 101 (101-111) mmol/L Carbon Dioxide 30.0 (21.0-31.0) mmol/L Anion Gap 14.0 BUN 16 (7-18) mg/dL Creatinine 0.7 (0.6-1.3) mg/dL Est Cr Clr Drug Dosing TNP Estimated GFR (MDRD) > 60 BUN/Creatinine Ratio 22.85 Glucose 155 H (74-105) mg/dL Calcium 9.3 (8.4-10.2) mg/dl Total Bilirubin 0.2 (0.2-1.0) mg/dL AST 29 (10-42) IU/L ALT 26 (10-60) IU/L Alkaline Phosphatase 61 (42-121) IU/L Total Protein 7.4 (6.7-8.2) g/dl Albumin 3.7 (3.2-5.5) g/dl Globulin 3.7 Albumin/Globulin Ratio 1.00 Departure - Departure Time of Disposition: 12:09 Disposition: Home, Self-Care 01 Condition: Good Clinical Impression: Transient neurological symptoms - Discharge Information Forms: ED Department Discharge Additional Instructions: Rest Call Dr. Weldon ( Neurology ) for F/U - My Orders Last 24 Hours: My Active Orders 12/18/16 11:30 DRUG SCREEN URINE BIORAD [URCHEM] Stat UA W/MICROSCOPIC [URIN] Stat - Assessment/Plan Last 24 Hours: My Active Orders 12/18/16 11:30 DRUG SCREEN URINE BIORAD [URCHEM] Stat UA W/MICROSCOPIC [URIN] Stat
[2016-12-18 11:53] LABS: CHLORIDE,CL 101 mmol/L (101-111); SODIUM,NA 141 mmol/L (135-145)
== END 2016-12-18 12:24 | disposition home or self-care (01) ==
LOC: DL.ED 11:37
DX: R29.818 Other symptoms and signs involving the nervous system (principal); E66.9 Obesity, unspecified; Z88.2 Allergy status to sulfonamides; Z88.1 Allergy status to other antibiotic agents
CPT/HCPCS: 36415; 80053; 80305; 81001; 85025; 99284

== ENCOUNTER 2017-01-23 19:53 | Emergency (ER) | payer OTHER ==
[2017-01-23] MEDS ORDERED: Clindamycin HCl 150 MG Cap PO ONE (20:08)
--- NOTE | 2017-01-23 20:13 | EDM.PDOC ---
ED HPI GENERAL MEDICAL PROBLEM - General Chief Complaint: Bite:Animal, Insect Stated Complaint: SPIDER BITE ON RIGHT FOOT [id number] Time Seen by Provider: 01/23/17 20:10 Source of Information: Reports: Patient History Limitations: Reports: No Limitations - History of Present Illness INITIAL COMMENTS - FREE TEXT/NARRATIVE: noticed today, claims spider bite. 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 Musculoskeletal History: Reports: None Neurological History: Reports: Other (See Below) Other Neuro History: powell's palsy Psychiatric History: Reports: None Endocrine/Metabolic History: Reports: Obesity/BMI 30+ Hematologic History: Reports: None Immunologic History: Reports: None Oncologic (Cancer) History: Reports: None Dermatologic History: Reports: Other (See Below) Other Dermatologic History: rosacea - Infectious Disease History Infectious Disease History: Reports: Chicken Pox, Mumps - Past Surgical History GI Surgical History: Reports: None Female Surgical History: Reports: None Musculoskeletal Surgical History: Reports: None Social & Family History - Family History Family Medical History: Noncontributory Cardiac: Reports: CAD, Stent Respiratory: Reports: None GI: Reports: None Neurological: Reports: CVA Endocrine/Metabolic: Reports: Diabetes, type II - Tobacco Use Smoking Status *Q: Never Smoker Used Tobacco, but Quit: No Second Hand Smoke Exposure: No - Caffeine Use Caffeine Use: Reports: Soda, Tea - Alcohol Use Days Per Week of Alcohol Use: 0 - Recreational Drug Use Recreational Drug Use: No - Living Situation & Occupation Living situation: Reports: Single, with Family Occupation: Employed ED ROS GENERAL - Review of Systems Review Of Systems: ROS reveals no pertinent complaints other than HPI. ED EXAM, ANIMAL BITE - Physical Exam Exam: See Below Exam Limited By: No Limitations General Appearance: Alert, WD/WN, No Apparent Distress Ears: Hearing Grossly Normal Throat/Mouth: Normal Voice, No Airway Compromise Head: Atraumatic Neck: Non-Tender, Full Range of Motion Respiratory/Chest: No Respiratory Distress Cardiovascular: Regular Rate, Rhythm GI/Abdominal: Soft, Non-Tender Neurological: Alert, Oriented, Normal Cognition, Normal Gait, No Motor/Sensory Deficits Psychiatric: Flat Affect Skin Exam: Normal Color, Warm/Dry Course - Orders/Labs/Meds Meds: Medications Discontinued Medications Generic Name Dose Route Start Last Admin Trade Name Elizabeth PRN Reason Stop Dose Admin Clindamycin HCl 150 mg 01/23/17 20:08 Cleocin PO 01/23/17 20:09 ONETIME ONE Departure - Departure Time of Disposition: 20:11 Disposition: Home, Self-Care 01 Condition: Good Clinical Impression: Cellulitis Qualifiers: Site of cellulitis: extremity Site of cellulitis of extremity: lower extremity Laterality: right Qualified Code(s): L03.115 - Cellulitis of right lower limb - Discharge Information Instructions: Insect Bite, [id number] Additional Instructions: 1) elevate leg as much as possible next 48 hours 2) try heat to area 3) follow up at clinic rx given; clindamycin 150mg qid x 40
[2017-01-23 20:27] VITALS: BP 133/63
== END 2017-01-23 20:31 | disposition home or self-care (01) ==
LOC: DL.ED 19:53
DX: L03.115 Cellulitis of right lower limb (principal); E66.9 Obesity, unspecified; Z88.2 Allergy status to sulfonamides; Z88.1 Allergy status to other antibiotic agents; Z68.42 Body mass index [BMI] 45.0-49.9, adult
CPT/HCPCS: 99283; A9270

== ENCOUNTER 2017-03-23 18:07 | Emergency (ER) | payer OTHER ==
[2017-03-23] MEDS ORDERED: Aspirin 81 MG Tab.Chew PO ONE (18:31)
--- NOTE | 2017-03-23 18:32 | EDM.PDOC ---
<Grant Sarabia M - Last Filed: 03/23/17 18:34> ED HPI GENERAL MEDICAL PROBLEM - General Chief Complaint: Chest Pain Stated Complaint: CHEST PAINS,BACK PAIN,NAUSEATED, [id number] Time Seen by Provider: 03/23/17 18:27 Source of Information: Reports: Patient History Limitations: Reports: No Limitations - History of Present Illness INITIAL COMMENTS - FREE TEXT/NARRATIVE: This 46 yo female patient reports to the ED with chest pain that started about 20 minutes prior to her arrival in the ED. The patient reports her pain is rated at a 6/10 in the middle of her chest going through to her back. Onset: Today Duration: Minutes: (20 minutes prior to coming to the ED) Location: Reports: Chest Quality: Reports: Ache, Dull Severity: Moderate Improves with: Reports: None Worsens with: Reports: None Associated Symptoms: Reports: Chest Pain Mid-Sternal Chest Pain Score (Numeric/FACES): 6 - Related Data Allergies Allergy/AdvReac Type Severity Reaction Status Date / Time sulfamethoxazole Allergy Stomach Verified 03/23/17 18:13 [From Bactrim] Upset trimethoprim [From Bactrim] Allergy Stomach Verified 03/23/17 18:13 Upset Home Meds: Home Meds Clopidogrel [Plavix] 75 mg PO BEDTIME 08/29/16 [History] Past Medical History Cardiovascular History: Reports: Other (See Below) Other Cardiovascular History: ventricular trigeminy Respiratory History: Reports: None Gastrointestinal History: Reports: None 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 History: Reports: None 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 Musculoskeletal History: Reports: None Neurological History: Reports: Seizure, Other (See Below) Other Neuro History: powell's palsy Psychiatric History: Reports: None Endocrine/Metabolic History: Reports: Obesity/BMI 30+ Hematologic History: Reports: None Immunologic History: Reports: None Oncologic (Cancer) History: Reports: None Dermatologic History: Reports: Other (See Below) Other Dermatologic History: rosacea - Infectious Disease History Infectious Disease History: Reports: Chicken Pox, Mumps - Past Surgical History GI Surgical History: Reports: None Female Surgical History: Reports: None Musculoskeletal Surgical History: Reports: None Social & Family History - Family History Family Medical History: Noncontributory Cardiac: Reports: CAD, Stent Respiratory: Reports: None GI: Reports: None Neurological: Reports: CVA Endocrine/Metabolic: Reports: Diabetes, type II - Tobacco Use Smoking Status *Q: Unknown Ever Smoked Used Tobacco, but Quit: No Second Hand Smoke Exposure: No - Caffeine Use Caffeine Use: Reports: Tea - Alcohol Use Days Per Week of Alcohol Use: 0 - Recreational Drug Use Recreational Drug Use: No - Living Situation & Occupation Living situation: Reports: Single, with Family Occupation: Employed ED ROS GENERAL - Review of Systems Review Of Systems: ROS reveals no pertinent complaints other than HPI. ED EXAM, GENERAL - Physical Exam Exam: See Below Exam Limited By: No Limitations General Appearance: Alert, WD/WN, Moderate Distress, Obese Eye Exam: Bilateral Eye: EOMI, Normal Inspection, PERRL Ears: Normal External Exam, Normal Canal, Hearing Grossly Normal, Normal TMs Nose: Normal Inspection, Normal Mucosa, No Blood Throat/Mouth: Normal Inspection, Normal Lips, Normal Teeth, Normal Gums, Normal Oropharynx, Normal Voice, No Airway Compromise Head: Atraumatic, Normocephalic Neck: Normal Inspection, Supple, Non-Tender, Full Range of Motion Respiratory/Chest: No Respiratory Distress, Lungs Clear, Normal Breath Sounds, No Accessory Muscle Use, Chest Non-Tender Cardiovascular: Normal Peripheral Pulses, Regular Rate, Rhythm, No Edema, No Gallop, No JVD, No Murmur, No Rub GI/Abdominal: Normal Bowel Sounds, Soft, Non-Tender, No Organomegaly, No Distention, No Abnormal Bruit, No Mass, Other (obese) (Female) Exam: Deferred Rectal (Female) Exam: Deferred Back Exam: Normal Inspection, Full Range of Motion, NT Extremities: Normal Inspection, Normal Range of Motion, Non-Tender, Normal Capillary Refill, No Pedal Edema Neurological: Alert, Oriented, CN II-XII Intact, Normal Cognition, Normal Gait, Normal Reflexes, No Motor/Sensory Deficits Psychiatric: Normal Affect, Normal Mood Skin Exam: Warm, Dry, Intact, Normal Color, No Rash Lymphatic: No Adenopathy Course - Vital Signs Last Recorded V/S: Last Vital Signs Temp 97.9 F 03/23/17 20:31 Pulse 84 03/24/17 01:00 Resp 16 03/24/17 01:00 BP 115/43 L 03/24/17 01:00 Pulse Ox 97 03/24/17 01:00 - Orders/Labs/Meds Orders: Active Orders 24 hr Category Date Time Status EKG Documentation Completion [RC] URGENT Care 03/23/17 23:00 Active Labs: Laboratory Tests 03/23/17 03/23/17 03/23/17 Range/Units 18:57 18:57 19:30 WBC 10.2 H (5.0-10.0) 10^3/uL RBC 4.54 (4.2-5.4) 10^6/uL Hgb 12.7 (12.0-16.0) g/dL Hct 40.3 (37.0-47.0) % MCV 88.8 (80-100) fL MCH 28.0 (27.0-34.0) pg MCHC 31.5 L (33.0-35.0) g/dL Plt Count 263 (150-450) 10^3/uL Neut % (Auto) 57.3 (42.2-75.2) % Lymph % (Auto) 29.3 (20.5-50.1) % [place] % (Auto) 9.1 H (2-8) % Eos % (Auto) 3.8 H (1.0-3.0) % Baso % (Auto) 0.5 (0.0-1.0) % D-Dimer, Quantitative (0-400) ng/mL Sodium 140 (135-145) mmol/L Potassium 4.2 (3.6-5.0) mmol/L Chloride 104 (101-111) mmol/L Carbon Dioxide 30.0 (21.0-31.0) mmol/L Anion Gap 10.2 BUN 17 (7-18) mg/dL Creatinine 0.8 (0.6-1.3) mg/dL Est Cr Clr Drug Dosing 71.91 mL/min Estimated GFR (MDRD) > 60 BUN/Creatinine Ratio 21.25 Glucose 167 H (74-105) mg/dL Calcium 9.2 (8.4-10.2) mg/dl Total Bilirubin 0.2 (0.2-1.0) mg/dL AST 32 (10-42) IU/L ALT 33 (10-60) IU/L Alkaline Phosphatase 66 (42-121) IU/L Troponin I < 0.02 (0.00-0.02) ng/ml Total Protein 7.6 (6.7-8.2) g/dl Albumin 3.8 (3.2-5.5) g/dl Globulin 3.8 Albumin/Globulin Ratio 1.00 Amylase 30 (28-100) U/L Lipase 20 L (22-51) U/L 03/23/17 03/23/17 Range/Units 19:30 23:58 WBC (5.0-10.0) 10^3/uL RBC (4.2-5.4) 10^6/uL Hgb (12.0-16.0) g/dL Hct (37.0-47.0) % MCV (80-100) fL MCH (27.0-34.0) pg MCHC (33.0-35.0) g/dL Plt Count (150-450) 10^3/uL Neut % (Auto) (42.2-75.2) % Lymph % (Auto) (20.5-50.1) % [place] % (Auto) (2-8) % Eos % (Auto) (1.0-3.0) % Baso % (Auto) (0.0-1.0) % D-Dimer, Quantitative 108 (0-400) ng/mL Sodium (135-145) mmol/L Potassium (3.6-5.0) mmol/L Chloride (101-111) mmol/L Carbon Dioxide (21.0-31.0) mmol/L Anion Gap BUN (7-18) mg/dL Creatinine (0.6-1.3) mg/dL Est Cr Clr Drug Dosing mL/min Estimated GFR (MDRD) BUN/Creatinine Ratio Glucose (74-105) mg/dL Calcium (8.4-10.2) mg/dl Total Bilirubin (0.2-1.0) mg/dL AST (10-42) IU/L ALT (10-60) IU/L Alkaline Phosphatase (42-121) IU/L Troponin I < 0.02 (0.00-0.02) ng/ml Total Protein (6.7-8.2) g/dl Albumin (3.2-5.5) g/dl Globulin Albumin/Globulin Ratio Amylase (28-100) U/L Lipase (22-51) U/L Meds: Medications Discontinued Medications Generic Name Dose Route Start Last Admin Trade Name Freq PRN Reason Stop Dose Admin Aspirin 324 mg 03/23/17 18:31 03/23/17 18:37 Aspirin PO 03/23/17 18:32 324 mg ONETIME ONE Administration Departure - Departure Disposition: Home, Self-Care 01 Clinical Impression: Non-cardiac chest pain Instructions: Nonspecific Chest Pain, [id number] Referrals: Jasmine Sanchez MD [Primary Care Provider] - Forms: ED Department Discharge Additional Instructions: rest bland diet, no caffeine recheck clinic one week, sooner if symptoms worsen continue home medications <Brittany Argueta - Last Filed: 03/24/17 02:02> Course - Radiology Interpretation Free Text/Narrative:: CXR: No acute process - Re-Assessments/Exams Free Text/Narrative Re-Assessment/Exam: Repeat EKG and troponin negative. Pain resolved Departure - Departure Time of Disposition: 00:30 Condition: Good
[2017-03-23 19:52] LABS: CHLORIDE,CL 104 mmol/L (101-111); SODIUM,NA 140 mmol/L (135-145)
[2017-03-24 01:01] VITALS: BP 115/43
--- NOTE | 2017-03-25 16:33 | EKG ---
03/23/2017 - MILTON FARRAR - TIME: 1815 hours. I reviewed the EKG and agree with the machine's reading. [facility] /[id number]
--- NOTE | 2017-03-25 16:33 | EKG ---
03/23/2017 - MILTON FARRAR - TIME: 2319 hours. I reviewed the EKG and agree with the machine's reading. [facility] /[id number]
== END 2017-03-24 01:00 | disposition home or self-care (01) ==
LOC: DL.ED 18:07
DX: R07.89 Other chest pain (principal); Z88.2 Allergy status to sulfonamides; Z88.1 Allergy status to other antibiotic agents
CPT/HCPCS: 36415; 71010; 80053; 82150; 83690; 84484; 85025; 85379; 93005; 99285; A9270

== ENCOUNTER 2017-07-27 18:04 | Emergency (ER) | payer OTHER ==
--- NOTE | 2017-07-27 22:29 | EDM.PDOC ---
ED HPI GENERAL MEDICAL PROBLEM - General Chief Complaint: Lower Extremity Injury/Pain Stated Complaint: [id number] foot is swollen Time Seen by Provider: 07/27/17 21:45 Source of Information: Reports: Patient History Limitations: Reports: No Limitations - History of Present Illness INITIAL COMMENTS - FREE TEXT/NARRATIVE: left ankle pain, lower leg swollen, getting worse, hx foster child sat on ankle and twisted, has been weight bearing for 3 weeks on ankle. 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 (see below) Other Treatments RUBBER GASKET INSPECTOR TRIMMER: none Right Feet Pain Score (Numeric/FACES): 6 - Related Data Allergies Allergy/AdvReac Type Severity Reaction Status Date / Time sulfamethoxazole Allergy Stomach Verified 07/27/17 18:44 [From Bactrim] Upset trimethoprim [From Bactrim] Allergy Stomach Verified 07/27/17 18:44 Upset Home Meds: Home Meds Clopidogrel [Plavix] 75 mg PO BEDTIME 08/29/16 [History] Past Medical History Cardiovascular History: Reports: Other (See Below) Other Cardiovascular History: ventricular trigeminy Respiratory History: Reports: None Gastrointestinal History: Reports: None 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 History: Reports: None 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 Musculoskeletal History: Reports: None Neurological History: Reports: Seizure, Other (See Below) Other Neuro History: powell's palsy Psychiatric History: Reports: None Endocrine/Metabolic History: Reports: Obesity/BMI 30+ Hematologic History: Reports: None Immunologic History: Reports: None Oncologic (Cancer) History: Reports: None Dermatologic History: Reports: Other (See Below) Other Dermatologic History: rosacea - Infectious Disease History Infectious Disease History: Reports: Chicken Pox, Mumps - Past Surgical History GI Surgical History: Reports: None Female Surgical History: Reports: None Musculoskeletal Surgical History: Reports: None Social & Family History - Family History Family Medical History: Noncontributory Cardiac: Reports: CAD, Stent Respiratory: Reports: None GI: Reports: None Neurological: Reports: CVA Endocrine/Metabolic: Reports: Diabetes, type II - Tobacco Use Smoking Status *Q: Never Smoker Used Tobacco, but Quit: No Second Hand Smoke Exposure: No - Caffeine Use Caffeine Use: Reports: Tea Caffeine Use Comment: states drinks caffeine free soda - Alcohol Use Days Per Week of Alcohol Use: 0 - Recreational Drug Use Recreational Drug Use: No - Living Situation & Occupation Living situation: Reports: Single, with Family Occupation: Employed Review of Systems - Review of Systems Review Of Systems: See Below Constitutional: Reports: No Symptoms Eyes: Reports: No Symptoms Ears: Reports: No Symptoms Nose: Reports: No Symptoms Mouth/Throat: Reports: No Symptoms Respiratory: Reports: No Symptoms Cardiovascular: Reports: Edema Musculoskeletal: Reports: Joint Pain (left ankle) Skin: Reports: No Symptoms Neurological: Reports: No Symptoms ED EXAM, GENERAL - Physical Exam Exam: See Below Exam Limited By: No Limitations General Appearance: Alert, No Apparent Distress, Obese Ears: Normal External Exam Nose: Normal Inspection Throat/Mouth: Normal Inspection Head: Atraumatic, Normocephalic Neck: Normal Inspection Respiratory/Chest: No Respiratory Distress, Lungs Clear Cardiovascular: Normal Peripheral Pulses, Regular Rate, Rhythm Extremities: Normal Range of Motion, Pedal Edema (2+ left lowermid calf) Neurological: Alert, Oriented Psychiatric: Normal Affect, Normal Mood Skin Exam: Warm, Dry, Intact, Normal Color Course - Vital Signs Last Recorded V/S: Last Vital Signs Temp 97.3 F 07/27/17 22:34 Pulse 79 07/27/17 22:34 Resp 16 07/27/17 22:34 BP 124/67 07/27/17 22:34 Pulse Ox 98 07/27/17 22:34 - Radiology Interpretation Free Text/Narrative:: left ankle no fracture Departure - Departure Time of Disposition: 22:26 Disposition: Home, Self-Care 01 Condition: Good Clinical Impression: Edema, lower extremity, Ankle sprain - Discharge Information Instructions: Ankle Sprain, [id number] Referrals: Jasmine Sanchez MD [Primary Care Provider] - Forms: ED Department Discharge Additional Instructions: elevate extremity above heart limit salt intake manny wrap starting at toes going up escalera. If worsening edema and pain with shortness of breath follow up sooner
[2017-07-27 22:36] VITALS: BP 124/67
== END 2017-07-27 22:37 | disposition home or self-care (01) ==
LOC: DL.ED 18:04
DX: S93.402A Sprain of unspecified ligament of left ankle, initial encounter (principal); Z88.2 Allergy status to sulfonamides; Z88.1 Allergy status to other antibiotic agents; X50.9XXA Other and unspecified overexertion or strenuous movements or postures, initial encounter
CPT/HCPCS: 73610-LT; 73630-LT; 99283

== ENCOUNTER 2017-09-05 12:10 | Emergency (ER) | payer OTHER ==
--- NOTE | 2017-09-05 12:20 | EDM.PDOC ---
ED HPI GENERAL MEDICAL PROBLEM - General Chief Complaint: Lower Extremity Injury/Pain Stated Complaint: leg pain [id number] Time Seen by Provider: 09/05/17 12:19 Source of Information: Reports: Patient, Old Records, RN, RN Notes Reviewed History Limitations: Reports: No Limitations - History of Present Illness INITIAL COMMENTS - FREE TEXT/NARRATIVE: C/O left ankle pain from an injury sustained at home this morning. Pt states she had a ortho. cam-walker boot on due to a ligament tear in the left foot/ ankle 4 weeks ago. This morning she took the boot off and was using crutches to go take a shower when she tripped on a child and "roller" the left ankle. She c/ o pain to the medial left ankle. Denies any other injury. Onset: Today Duration: Constant Quality: Reports: Ache, Pressure Severity: Severe Improves with: Reports: Immobilization Worsens with: Reports: Movement Associated Symptoms: Reports: No Other Symptoms Left Ankle Pain Score (Numeric/FACES): 8 - Related Data Allergies Allergy/AdvReac Type Severity Reaction Status Date / Time sulfamethoxazole Allergy Stomach Verified 07/27/17 18:44 [From Bactrim] Upset trimethoprim [From Bactrim] Allergy Stomach Verified 07/27/17 18:44 Upset Home Meds: Home Meds Clopidogrel [Plavix] 75 mg PO BEDTIME 08/29/16 [History] Past Medical History Cardiovascular History: Reports: Other (See Below) Other Cardiovascular History: ventricular trigeminy Respiratory History: Reports: None Gastrointestinal History: Reports: None 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 History: Reports: None 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 Musculoskeletal History: Reports: Other (See Below) (ligament injury left foot/ ankle) Neurological History: Reports: Seizure, Other (See Below) Other Neuro History: powell's palsy Psychiatric History: Reports: None Endocrine/Metabolic History: Reports: Obesity/BMI 30+ Hematologic History: Reports: None Immunologic History: Reports: None Oncologic (Cancer) History: Reports: None Dermatologic History: Reports: Other (See Below) Other Dermatologic History: rosacea - Infectious Disease History Infectious Disease History: Reports: Chicken Pox, Mumps - Past Surgical History GI Surgical History: Reports: None Female Surgical History: Reports: None Musculoskeletal Surgical History: Reports: None Social & Family History - Family History Family Medical History: Noncontributory Cardiac: Reports: CAD, Stent Respiratory: Reports: None GI: Reports: None Neurological: Reports: CVA Endocrine/Metabolic: Reports: Diabetes, type II - Caffeine Use Caffeine Use: Reports: Tea Caffeine Use Comment: states drinks caffeine free soda - Living Situation & Occupation Living situation: Reports: Single, with Family Occupation: Employed Review of Systems - Review of Systems Review Of Systems: ROS reveals no pertinent complaints other than HPI. ED EXAM, GENERAL - Physical Exam Exam: See Below Exam Limited By: No Limitations General Appearance: Alert, WD/WN, No Apparent Distress, Obese Head: Atraumatic, Normocephalic Neck: Normal Inspection Respiratory/Chest: No Respiratory Distress Extremities: Normal Capillary Refill, Joint Swelling (mild swelling of left ankle), Limited Range of Motion (left ankle) Neurological: Alert, Oriented, No Motor/Sensory Deficits Psychiatric: Normal Mood Skin Exam: Warm, Dry, Intact Course - Vital Signs Last Recorded V/S: Last Vital Signs Temp 36.8 C 09/05/17 12:23 Pulse 66 09/05/17 12:23 Resp 16 09/05/17 12:23 BP 142/69 H 09/05/17 12:23 Pulse Ox 99 09/05/17 12:23 - Orders/Labs/Meds Orders: Active Orders 24 hr Category Date Time Status Ankle Min 3V Lt [CR] Urgent Exams 09/05/17 12:29 Taken - Radiology Interpretation Free Text/Narrative:: [facility] Final Radiology Report Call: [phone] assistance Online chat: [email or web address] Name: MILTON FARRAR Age: 46Years F Date: 09/05/2017 SSN: -- : 1970 Study: XR ANKLE COMPLETE MIN 3 VIEWS Requesting Physician: Nando Pantoja Images: 3 Addl Studies: Provided Clinical History: left ankle injury/pain Contrast: Contrast Medium: Contrast Amount: Contrast Method: Page 1 of 2 EXAM: XR Left Ankle Complete, 3 or More Views EXAM DATE/TIME: 09/05/2017 12:30 PM CLINICAL HISTORY: The patient is 46 years old and is female; Pain; Ankle; Left; Additional info: Left ankle injury/pain Patient states her body went in one direction and her ankle in the other, medial left ankle pain TECHNIQUE: Frontal, lateral and oblique views of the left ankle. COMPARISON: CR - Ankle Min 3V Lt 2017-07-27 18:53 FINDINGS: Bones/joints: Question nondisplaced fracture at the base of the fifth metatarsal. No other fracture is identified. The ankle mortise is preserved on these nonstressed views. Plantar and posterior calcaneal osteophytes are again present. There is again mild osteophyte formation along the medial and anterior malleoli and about multiple intertarsal joints. No dislocation. Soft tissues: The soft tissues appear grossly unremarkable. IMPRESSION: 1. Question nondisplaced fracture at the base of the fifth metatarsal. Correlate with point tenderness. May consider follow-up in 7 to 10 days or correlation with MRI if symptoms persist. 2. Degenerative changes similar to 07/27/17. Thank you for allowing us to participate in the care of your patient. MILTON FARRAR | Final Radiology Report CONFIDENTIALITY STATEMENT This report is intended only for use by the referring physician, and only in accordance with law. If you received this in error, call [phone]. Page 2 of 2 Dictated and Authenticated by: Gonzalez Howard MD 09/05/2017 1:17 PM Central Time ([place] & [place]) Departure - Departure Time of Disposition: 13:19 Disposition: Home, Self-Care 01 Condition: Good Clinical Impression: Ankle sprain Qualifiers: Encounter type: initial encounter Involved ligament of ankle: unspecified ligament Laterality: left Qualified Code(s): S93.402A - Sprain of unspecified ligament of left ankle, initial encounter - Discharge Information Instructions: Ankle Sprain Forms: ED Department Discharge Additional Instructions: Rest, ice packs, and elevate left ankle. No weight bearing on left foot, use crutches and the immobilization boot. Use Acetaminophen (Tylenol) and/or Ibuprofen (Motrin/Advil) as needed for pain. Follow instructions on package label for dosing and precautions. Follow up with orthopedic surgeon as scheduled. - My Orders Last 24 Hours: My Active Orders 09/05/17 12:29 Ankle Min 3V Lt [CR] Urgent - Assessment/Plan Last 24 Hours: My Active Orders 09/05/17 12:29 Ankle Min 3V Lt [CR] Urgent
[2017-09-05 12:24] VITALS: BP 142/69
== END 2017-09-05 13:31 | disposition home or self-care (01) ==
LOC: DL.ED 12:10
DX: S93.402A Sprain of unspecified ligament of left ankle, initial encounter (principal); Z88.2 Allergy status to sulfonamides; Z88.1 Allergy status to other antibiotic agents; W01.0XXA Fall on same level from slipping, tripping and stumbling without subsequent striking against object, initial encounter
CPT/HCPCS: 73610-LT; 99283

== ENCOUNTER 2018-09-27 20:58 | Emergency (ER) | payer BC, OTHER ==
[2018-09-27 21:10] VITALS: BP 151/85
--- NOTE | 2018-09-27 21:23 | EDM.PDOC ---
ED HPI GENERAL MEDICAL PROBLEM - General Chief Complaint: General Stated Complaint: SEIZURE 8:30 ,LEFT SIDE IS TINGLING Time Seen by Provider: 09/27/18 21:10 Source of Information: Reports: Patient History Limitations: Reports: No Limitations - History of Present Illness INITIAL COMMENTS - FREE TEXT/NARRATIVE: ED ambulatory with family with report of seizure tonight, lasted 2-3 minutes, describes as partial seizure. Hx of same in past last one month ago, usually associated with stress, didn't feel stressed tonight. Had pin prick sensation down left arm and leg. No weakness. No difficulty with speech. reported seizure type that right eye fluttered and twitching of right side. Stated she had been on amitryptyline but had not gone back to Dr and gotten refill of medication. Prior record notes Plavix, stated she had extra beats but not currently taking either. - Related Data Allergies Allergy/AdvReac Type Severity Reaction Status Date / Time sulfamethoxazole Allergy Stomach Verified 09/27/18 21:05 [From Bactrim] Upset trimethoprim [From Bactrim] Allergy Stomach Verified 09/27/18 21:05 Upset Home Meds: Home Meds Clopidogrel [Plavix] 75 mg PO BEDTIME 08/29/16 [History] Past Medical History HEENT History: Reports: Impaired Vision Cardiovascular History: Reports: Other (See Below) Other Cardiovascular History: ventricular trigeminy Respiratory History: Reports: None Gastrointestinal History: Reports: None 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 History: Reports: None [employer] History: Reports: None Musculoskeletal History: Reports: Other (See Below) (ligament injury left foot/ ankle) Neurological History: Reports: Seizure, Other (See Below) Other Neuro History: powell's palsy Psychiatric History: Reports: None Endocrine/Metabolic History: Reports: Obesity/BMI 30+ Hematologic History: Reports: None Immunologic History: Reports: None Oncologic (Cancer) History: Reports: None Dermatologic History: Reports: Other (See Below) Other Dermatologic History: rosacea - Infectious Disease History Infectious Disease History: Reports: Chicken Pox, Mumps - Past Surgical History GI Surgical History: Reports: None Female Surgical History: Reports: None Musculoskeletal Surgical History: Reports: None Social & Family History - Family History Family Medical History: Noncontributory Cardiac: Reports: CAD, Stent Respiratory: Reports: None GI: Reports: None Neurological: Reports: CVA Endocrine/Metabolic: Reports: Diabetes, type II - Caffeine Use Caffeine Use: Reports: Tea Caffeine Use Comment: states drinks caffeine free soda - Living Situation & Occupation Living situation: Reports: Single, with Family Occupation: Employed ED ROS GENERAL - Review of Systems Review Of Systems: ROS reveals no pertinent complaints other than HPI. ED EXAM, GENERAL - Physical Exam Exam: See Below Exam Limited By: No Limitations General Appearance: Alert, No Apparent Distress, Obese Eye Exam: Bilateral Eye: EOMI, Normal Fundi, PERRL Ears: Normal External Exam, Normal TMs Nose: Normal Inspection Throat/Mouth: Normal Inspection Head: Atraumatic, Normocephalic Neck: Normal Inspection Respiratory/Chest: No Respiratory Distress, Lungs Clear, Normal Breath Sounds Cardiovascular: Normal Peripheral Pulses, Regular Rate, Rhythm. No: No Edema (2 = pedal) GI/Abdominal: Normal Bowel Sounds, Soft Back Exam: Full Range of Motion Extremities: Normal Range of Motion Neurological: Alert, Oriented, CN II-XII Intact, Normal Cognition, Normal Gait. No: Disoriented, Slow to Respond, Memory Loss Remote Events, Abnormal Reflexes , Sensory/Motor Deficit Psychiatric: Normal Affect, Normal Mood Skin Exam: Warm, Dry, Intact, Normal Color, No Rash Course - Vital Signs Last Recorded V/S: Last Vital Signs Temp 98.2 F 09/27/18 21:06 Pulse 85 09/27/18 21:06 Resp 14 09/27/18 21:06 BP 151/85 H 09/27/18 21:06 Pulse Ox 99 09/27/18 21:06 - Orders/Labs/Meds Orders: Active Orders 24 hr Category Date Time Status EKG Documentation Completion [RC] URGENT Care 09/27/18 21:21 Active Labs: Laboratory Tests 09/27/18 09/27/18 09/27/18 Range/Units 21:33 21:35 21:35 WBC 10.5 H (5.0-10.0) 10^3/uL RBC 4.64 (4.2-5.4) 10^6/uL Hgb 12.9 (12.0-16.0) g/dL Hct 40.7 (37.0-47.0) % MCV 87.7 (80-100) fL MCH 27.8 (27.0-34.0) pg MCHC 31.7 L (33.0-35.0) g/dL Plt Count 244 (150-450) 10^3/uL Neut % (Auto) 52.7 (42.2-75.2) % Lymph % (Auto) 35.4 (20.5-50.1) % [place] % (Auto) 8.4 H (2-8) % Eos % (Auto) 3.2 H (1.0-3.0) % Baso % (Auto) 0.3 (0.0-1.0) % PT 10.0 (9.0-12.0) SEC INR 1.0 (0.9-1.2) Sodium (135-145) mmol/L Potassium (3.6-5.0) mmol/L Chloride (101-111) mmol/L Carbon Dioxide (21.0-31.0) mmol/L Anion Gap BUN (7-18) mg/dL Creatinine (0.6-1.3) mg/dL Est Cr Clr Drug Dosing mL/min Estimated GFR (MDRD) BUN/Creatinine Ratio Glucose (74-105) mg/dL POC Glucose 210 H (70-105) mg/dl Calcium (8.4-10.2) mg/dl Total Bilirubin (0.2-1.0) mg/dL AST (10-42) IU/L ALT (10-60) IU/L Alkaline Phosphatase (42-121) IU/L Troponin I (0.00-0.02) ng/ml Total Protein (6.7-8.2) g/dl Albumin (3.2-5.5) g/dl Globulin Albumin/Globulin Ratio 06/25/19 Range/Units 21:35 WBC (5.0-10.0) 10^3/uL RBC (4.2-5.4) 10^6/uL Hgb (12.0-16.0) g/dL Hct (37.0-47.0) % MCV (80-100) fL MCH (27.0-34.0) pg MCHC (33.0-35.0) g/dL Plt Count (150-450) 10^3/uL Neut % (Auto) (42.2-75.2) % Lymph % (Auto) (20.5-50.1) % [place] % (Auto) (2-8) % Eos % (Auto) (1.0-3.0) % Baso % (Auto) (0.0-1.0) % PT (9.0-12.0) SEC INR (0.9-1.2) Sodium 138 (135-145) mmol/L Potassium 3.5 L (3.6-5.0) mmol/L Chloride 102 (101-111) mmol/L Carbon Dioxide 26.0 (21.0-31.0) mmol/L Anion Gap 13.5 BUN 15 (7-18) mg/dL Creatinine 0.8 (0.6-1.3) mg/dL Est Cr Clr Drug Dosing 71.14 mL/min Estimated GFR (MDRD) > 60 BUN/Creatinine Ratio 18.75 Glucose 200 H (74-105) mg/dL POC Glucose (70-105) mg/dl Calcium 8.6 (8.4-10.2) mg/dl Total Bilirubin 0.4 (0.2-1.0) mg/dL AST 28 (10-42) IU/L ALT 30 (10-60) IU/L Alkaline Phosphatase 64 (42-121) IU/L Troponin I < 0.02 (0.00-0.02) ng/ml Total Protein 7.6 (6.7-8.2) g/dl Albumin 3.8 (3.2-5.5) g/dl Globulin 3.8 Albumin/Globulin Ratio 1.00 - Radiology Interpretation Free Text/Narrative:: Head CT no acute findings- see report - Re-Assessments/Exams Free Text/Narrative Re-Assessment/Exam: 09/28/18 06:[address] Jonny Salomon Neuro. Recommend out patient followup. Departure - Departure Time of Disposition: 22:22 Disposition: Home, Self-Care 01 Condition: Good Clinical Impression: Seizure, Transient neurological symptoms - Discharge Information *PRESCRIPTION DRUG MONITORING PROGRAM REVIEWED*: No *COPY OF PRESCRIPTION DRUG MONITORING REPORT IN PATIENT LANA: No Instructions: Seizure, Adult, Fuzz-fz-Iyon Referrals: PCP,Unobtain [Ordering Only Provider] - Forms: ED Department Discharge Additional Instructions: follow up with neuro clinic this week light activity, no driving until seen by neuro monitor blood pressure baby aspirin daily follow up primary care - My Orders Last 24 Hours: My Active Orders 09/27/18 21:21 EKG Documentation Completion [RC] URGENT - Assessment/Plan Last 24 Hours: My Active Orders 09/27/18 21:21 EKG Documentation Completion [RC] URGENT
[2018-09-27 22:04] LABS: ANION GAP 13.5; CHLORIDE,CL 102 mmol/L (101-111); SODIUM,NA 138 mmol/L (135-145)
== END 2018-09-27 23:30 | disposition home or self-care (01) ==
LOC: DL.ED 20:58
DX: R56.9 Unspecified convulsions (principal); Z88.2 Allergy status to sulfonamides; Z88.1 Allergy status to other antibiotic agents; Z79.01 Long term (current) use of anticoagulants
CPT/HCPCS: 36415; 70450; 80053; 82962; 84484; 85025; 85610; 93005; 99284-25

== ENCOUNTER 2019-05-13 10:20 | Emergency (ER) | payer BC, OTHER ==
[2019-05-13 11:44] VITALS: BP 135/69; PULSE 77
[2019-05-13] MEDS ORDERED: Gentamicin 0.3% Ophth Soln 5 ML Bottle EYERT ONE (11:45)
--- NOTE | 2019-05-13 11:53 | EDM.PDOC ---
Scribed by Brittany Matute 05/13/19 1150 for Nando Pantoja MD ED HPI GENERAL MEDICAL PROBLEM - General Chief Complaint: Eye Problems Stated Complaint: RT EYE SWOLLEN Time Seen by Provider: 05/13/19 11:37 Source of Information: Reports: Patient, RN, RN Notes Reviewed History Limitations: Reports: No Limitations - History of Present Illness INITIAL COMMENTS - FREE TEXT/NARRATIVE: Patient presents to ER with c/o cough and congest x1 week, with subjective low grade fevers. Today she woke with her right eye matted with yellow material. Onset: Gradual Duration: Day(s): (5), Constant, Getting Worse Location: Reports: Head, Face, Chest Severity: Moderate Improves with: Reports: None Worsens with: Reports: None Context: Reports: Sick Contact Associated Symptoms: Reports: No Other Symptoms - Related Data Allergies Allergy/AdvReac Type Severity Reaction Status Date / Time sulfamethoxazole Allergy Stomach Verified 05/13/19 11:44 [From Bactrim] Upset trimethoprim [From Bactrim] Allergy Stomach Verified 05/13/19 11:44 Upset Home Meds: Home Meds Amitriptyline [Elavil] 50 mg PO DAILY 03/21/19 [History] ClonazePAM [KlonoPIN] 0.5 mg PO DAILY 03/21/19 [History] Past Medical History HEENT History: Reports: Impaired Vision Cardiovascular History: Reports: Other (See Below) Other Cardiovascular History: ventricular trigeminy Respiratory History: Reports: None Gastrointestinal History: Reports: None 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 History: Reports: None [employer] History: Reports: None Musculoskeletal History: Reports: Other (See Below) (ligament injury left foot/ ankle) Neurological History: Reports: Seizure, Other (See Below) Other Neuro History: powell's palsy Psychiatric History: Reports: None Endocrine/Metabolic History: Reports: Obesity/BMI 30+ Hematologic History: Reports: None Immunologic History: Reports: None Oncologic (Cancer) History: Reports: None Dermatologic History: Reports: Other (See Below) Other Dermatologic History: rosacea - Infectious Disease History Infectious Disease History: Reports: Chicken Pox, Mumps - Past Surgical History GI Surgical History: Reports: None Female Surgical History: Reports: None Musculoskeletal Surgical History: Reports: None Social & Family History - Family History Family Medical History: Noncontributory Cardiac: Reports: CAD, Stent Respiratory: Reports: None GI: Reports: None Neurological: Reports: CVA Endocrine/Metabolic: Reports: Diabetes, type II - Caffeine Use Caffeine Use: Reports: Tea Caffeine Use Comment: states drinks caffeine free soda - Living Situation & Occupation Living situation: Reports: Single, with Family Occupation: Employed ED ROS GENERAL - Review of Systems Review Of Systems: Comprehensive ROS is negative, except as noted in HPI. ED EXAM GENERAL W FULL EYE - Physical Exam Exam: See Below Exam Limited By: No Limitations General Appearance: Alert, WD/WN, No Apparent Distress, Obese Eye Exam: Right Eye: Conjunctival Injection (with yellow matting), Left Eye: Normal Inspection, Bilateral Eye: EOMI, PERRL Eyelids: Bilateral: Normal Appearance Conjunctiva & Sclera: Right: Discharge, Injected Cornea Exam: Bilateral: Normal Appearance Extraocular Movements: Bilateral: Intact Pupils: Normal Accommodation Pupillary Size: Bilateral: 4 mm Pupillary Reaction: Bilateral: Brisk Ears: Normal External Exam, Normal Canal, Hearing Grossly Normal, Normal TMs Nose: No Blood, Nasal Drainage Throat/Mouth: Normal Inspection, Normal Lips, Normal Teeth, Normal Gums, Normal Oropharynx (with postnasal drip), Normal Voice, No Airway Compromise Head: Atraumatic, Normocephalic Neck: Normal Inspection, Supple, Non-Tender, Full Range of Motion Respiratory/Chest: No Respiratory Distress, Lungs Clear, Normal Breath Sounds, No Accessory Muscle Use, Chest Non-Tender, Other (mild dry cough) Cardiovascular: Regular Rate, Rhythm Psychiatric: Normal Mood Skin Exam: Warm, Dry, Intact, Rash (chronic mid-face rosacea with moderate acute flare up) Course - Vital Signs Last Recorded V/S: Last Vital Signs Temp 98 F 05/13/19 11:42 Pulse 77 05/13/19 11:42 Resp 16 05/13/19 11:42 BP 135/69 05/13/19 11:42 Pulse Ox 97 05/13/19 11:42 - Orders/Labs/Meds Meds: Medications Discontinued Medications Generic Name Dose Route Start Last Admin Trade Name Freq PRN Reason Stop Dose Admin Gentamicin Sulfate 1 ml 05/13/19 11:45 05/13/19 11:48 Garamycin 0.3% Ophth Soln EYERT 05/13/19 11:46 1 ml ONETIME ONE Administration Departure - Departure Time of Disposition: 11:47 Disposition: Home, Self-Care 01 Condition: Good Clinical Impression: URI with cough and congestion, Rosacea Conjunctivitis Qualifiers: Conjunctivitis type: acute Acute conjunctivitis type: bacterial Laterality: right Qualified Code(s): H10.31 - Unspecified acute conjunctivitis, right eye - Discharge Information *PRESCRIPTION DRUG MONITORING PROGRAM REVIEWED*: Not Applicable *COPY OF PRESCRIPTION DRUG MONITORING REPORT IN PATIENT LANA: Not Applicable Instructions: Upper Respiratory Infection, Adult, Bacterial Conjunctivitis, Rosacea Forms: ED Department Discharge Additional Instructions: Gentamicin Ophthalmic Solution 0.3%: One drop in affected eye(s) four times a day for five days. Rx: Doxycycline 100mg Rx: Loratadine D-24HR Saltwater gargles until improved. Follow up in clinic if not improving in 5 to 6 days. Sepsis Event Note - Focused Exam Vital Signs: Vital Signs Temp Pulse Resp BP Pulse Ox 05/13/19 11:42 98 F 77 16 135/69 97 Date Exam was Performed: 05/13/19 Time Exam was Performed: 11:50 I have read and agree with the documentation that has been completed regarding this visit. By signing this record, I attest that the documentation was completed in my physical presence and is an accurate record of the encounter.
== END 2019-05-13 11:58 | disposition home or self-care (01) ==
LOC: DL.ED 10:20
DX: J06.9 Acute upper respiratory infection, unspecified (principal); H10.31 Unspecified acute conjunctivitis, right eye; L71.9 Rosacea, unspecified; E66.9 Obesity, unspecified; Z68.43 Body mass index [BMI] 50.0-59.9, adult; Z88.2 Allergy status to sulfonamides; Z79.899 Other long term (current) drug therapy
CPT/HCPCS: 99282; A9270

== ENCOUNTER 2020-06-16 11:52 | Emergency (ER) | payer BC, MEDICAID, OTHER ==
[2020-06-16 12:05] VITALS: BP 140/73; PULSE 84
--- NOTE | 2020-06-16 13:04 | CR ---
PROCEDURE INFORMATION: Exam: XR Chest Exam date and time: 06/16/2020 12:52 PM Age: 49 years old Clinical indication: Chest pain TECHNIQUE: Imaging protocol: XR of the chest Views: 1 view. COMPARISON: No relevant prior studies available. FINDINGS: Lungs: Unremarkable. No consolidation. Pleural spaces: Unremarkable. No pleural effusion. No pneumothorax. Heart/Mediastinum: Unremarkable. No cardiomegaly. Bones/joints: Unremarkable. IMPRESSION: No acute findings. Seen may
[2020-06-16 13:25] LABS: ANION GAP 14.9 mEq/L (7-13); CHLORIDE,CL 103 mmol/L (98-107); SODIUM,NA 142 mmol/L (136-145)
[2020-06-16] MEDS ORDERED: Iopamidol 612 MG/ML 100 ML Bottle IVPUSH ONE (13:38)
--- NOTE | 2020-06-16 14:32 | CT ---
PROCEDURE INFORMATION: Exam: CT Abdomen And Pelvis With Contrast Exam date and time: 06/16/2020 1:50 PM Age: 49 years old Clinical indication: Abdominal pain; Additional info: Low abdominal pain TECHNIQUE: Imaging protocol: Computed tomography of the abdomen and pelvis with contrast. Radiation optimization: All CT scans at this facility use at least one of these dose optimization techniques: automated exposure control; mA and/or kV adjustment per patient size (includes targeted exams where dose is matched to clinical indication); or iterative reconstruction. Contrast material: [id number]; Contrast volume: 100 ml; Contrast route: INTRAVENOUS (IV); COMPARISON: No relevant prior studies available. FINDINGS: Lungs: Unremarkable.No mass or nodule. Liver: Normal. No mass. Gallbladder and bile ducts: Normal. No calcified stones. No ductal dilation. Pancreas: Normal. No ductal dilation. Spleen: Normal. No splenomegaly. Adrenal glands: Normal. No mass. Kidneys and ureters: Normal. No hydronephrosis. Stomach and bowel: Unremarkable. No obstruction. Short segment of the proximal sigmoid colon demonstrates mural thickening and pericolic fat stranding highly suspect for acute diverticulitis. Appendix: No evidence of appendicitis. Intraperitoneal space: Unremarkable. No free air. No significant fluid collection. Vasculature: Unremarkable. No abdominal aortic aneurysm. Lymph nodes: Unremarkable. No enlarged lymph nodes. Urinary bladder: Unremarkable as visualized. Reproductive: Unremarkable as visualized. Bones/joints: Unremarkable. No acute fracture. Soft tissues: Unremarkable. IMPRESSION: Findings suspicious for acute diverticulitis. No other significant abdominal or pelvic findings.
[2020-06-16] MEDS ORDERED: Ciprofloxacin in D5W 400 MG in Premix Bag 1 BAG IV ONE ×2 (14:51)
[2020-06-16] MEDS ORDERED: metroNIDAZOLE/Normal Saline 500 MG in Premix Bag 100 BAG IV ONE (14:51)
[2020-06-16] MEDS ORDERED: Ciprofloxacin 500 MG Tab PO ONE (15:01)
[2020-06-16] MEDS ORDERED: metroNIDAZOLE 250 MG Tab PO ONE (15:02)
--- NOTE | 2020-06-16 17:01 | EDM.PDOC ---
Scribed by Brittany Matute 06/16/20 1342 for Maria Guadalupe Small NP ED HPI GENERAL MEDICAL PROBLEM - General Chief Complaint: Chest Pain Stated Complaint: BACK AND CHEST PAIN, STOMACH PAIN Time Seen by Provider: 06/16/20 12:39 Source of Information: Reports: Patient, RN, RN Notes Reviewed History Limitations: Reports: No Limitations - History of Present Illness INITIAL COMMENTS - FREE TEXT/NARRATIVE: Patient is a 49-year-old female who presents to ER with complaint of back pain, chest burning pain for the past 4 days. She has wheezing and shortness of breath "sometimes". No heavy lifting recently. Her appetite is decreased. Also states lower abdominal intermittent pain that wraps around to the back. Child at home has gastroenteritis. She has had no exposure to COVID and no COVID with x2 vaccinations. She also has diarrhea. No nausea, vomiting, fever, and chills. Chest Pain Score (Numeric/FACES): 5 - Related Data Allergies Allergy/AdvReac Type Severity Reaction Status Date / Time sulfamethoxazole Allergy Stomach Verified 06/16/20 12:01 [From Bactrim] Upset trimethoprim [From Bactrim] Allergy Stomach Verified 06/16/20 12:01 Upset Home Meds: Home Meds Amitriptyline [Elavil] 50 mg PO DAILY 03/21/19 [History] ClonazePAM [KlonoPIN] 0.5 mg PO DAILY 03/21/19 [History] Past Medical History HEENT History: Reports: Impaired Vision Cardiovascular History: Reports: Other (See Below) Other Cardiovascular History: ventricular trigeminy Respiratory History: Reports: None Gastrointestinal History: Reports: None 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 History: Reports: None, UTI, Recurrent 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 Musculoskeletal History: Reports: Other (See Below) Neurological History: Reports: Seizure, Other (See Below) Other Neuro History: powell's palsy Psychiatric History: Reports: None Endocrine/Metabolic History: Reports: Diabetes, Type II, Obesity/BMI 30+ Hematologic History: Reports: None Immunologic History: Reports: None Oncologic (Cancer) History: Reports: None Dermatologic History: Reports: Other (See Below) Other Dermatologic History: rosacea - Infectious Disease History Infectious Disease History: Reports: Chicken Pox, Mumps - Past Surgical History GI Surgical History: Reports: None Female Surgical History: Reports: None Endocrine Surgical History: Reports: None Musculoskeletal Surgical History: Reports: None Other Musculoskeletal Surgeries/Procedures:: twisted left ankle Social & Family History - Family History Family Medical History: No Pertinent Family History Cardiac: Reports: CAD, Stent Respiratory: Reports: None GI: Reports: None Neurological: Reports: CVA Endocrine/Metabolic: Reports: Diabetes, type II - Tobacco Use Tobacco Use Status *Q: Never Tobacco User - Caffeine Use Caffeine Use: Reports: None Caffeine Use Comment: states drinks caffeine free soda - Recreational Drug Use Recreational Drug Use: No - Living Situation & Occupation Living situation: Reports: Single, with Family Occupation: Employed ED ROS GENERAL - Review of Systems Review Of Systems: Comprehensive ROS is negative, except as noted in HPI. ED EXAM, GENERAL - Physical Exam Exam: See Below Exam Limited By: No Limitations General Appearance: Alert, WD/WN, No Apparent Distress Eye Exam: Bilateral Eye: EOMI, Normal Inspection, PERRL Ears: Normal External Exam, Normal Canal, Hearing Grossly Normal, Normal TMs Nose: Normal Inspection, Normal Mucosa, No Blood Throat/Mouth: Normal Inspection, Normal Lips, Normal Teeth, Normal Gums, Normal Oropharynx, Normal Voice, No Airway Compromise Head: Atraumatic, Normocephalic Neck: Normal Inspection, Supple, Non-Tender, Full Range of Motion Respiratory/Chest: Other (diminished bilateral) Cardiovascular: Normal Peripheral Pulses, Regular Rate, Rhythm, No Edema, No Gallop, No JVD, No Murmur, No Rub GI/Abdominal: Normal Bowel Sounds, Soft, Non-Tender, No Organomegaly, No Diste ntion, No Abnormal Bruit, No Mass (Female) Exam: Deferred Rectal (Female) Exam: Deferred Back Exam: Normal Inspection, Full Range of Motion, NT Extremities: Normal Inspection, Normal Range of Motion, Non-Tender, Normal Capillary Refill, No Pedal Edema Neurological: Alert, Oriented, CN II-XII Intact, Normal Cognition, Normal Gait, Normal Reflexes, No Motor/Sensory Deficits Psychiatric: Normal Affect, Normal Mood Skin Exam: Warm, Dry, Intact, Normal Color, No Rash Lymphatic: No Adenopathy Course - Vital Signs Last Recorded V/S: Last Vital Signs Temp 98.3 F 06/16/20 12:02 Pulse 84 06/16/20 12:02 Resp 20 06/16/20 12:02 BP 140/73 06/16/20 12:02 Pulse Ox 100 06/16/20 12:02 - Orders/Labs/Meds Labs: Laboratory Tests 06/16/20 06/16/20 06/16/20 Range/Units 12:58 12:58 13:16 WBC 7.9 (5.0-10.0) 10^3/uL RBC 4.46 (4.2-5.4) 10^6/uL Hgb 12.6 (12.0-16.0) g/dL Hct 39.0 (37.0-47.0) % MCV 87.4 (80-100) fL MCH 28.3 (27.0-34.0) pg MCHC 32.3 L (33.0-35.0) g/dL Plt Count 233 (150-450) 10^3/uL Neut % (Auto) 62.1 (42.2-75.2) % Lymph % (Auto) 21.4 (20.5-50.1) % [place] % (Auto) 7.0 (2-8) % Eos % (Auto) 9.0 H (1.0-3.0) % Baso % (Auto) 0.5 (0.0-1.0) % Sodium 142 (136-145) mmol/L Potassium 3.9 (3.5-5.1) mmol/L Chloride 103 (98-107) mmol/L Carbon Dioxide 28 (21-32) mmol/L Anion Gap 14.9 H (7-13) mEq/L BUN 18 (7-18) mg/dL Creatinine 0.82 (0.55-1.02) mg/dL Est Cr Clr Drug Dosing 67.90 mL/min Estimated GFR (MDRD) > 60 BUN/Creatinine Ratio 22.0 (No establ ref range) Glucose 157 H (74-99) mg/dL Calcium 8.3 L (8.5-10.1) mg/dL Total Bilirubin 0.3 (0.2-1.0) mg/dL AST 19 (15-37) U/L ALT 27 (14-59) U/L Alkaline Phosphatase 71 (46-116) U/L Troponin I < 0.017 (0.000-0.056) ng/mL Total Protein 7.4 (6.4-8.2) g/dL Albumin 3.2 L (3.4-5.0) g/dL Globulin 4.2 Albumin/Globulin Ratio 0.76 Urine Color Dark yellow (YELLOW) Urine Appearance Slightly cloudy (CLEAR) Urine pH 5.5 (5.0-9.0) Ur Specific [place] >= 1.030 (1.005-1.030) Urine Protein 30 H (NEGATIVE) Urine Glucose (UA) Negative (NEGATIVE) Urine Ketones Negative (NEGATIVE) Urine Occult Blood Negative (NEGATIVE) Urine Nitrite Negative (NEGATIVE) Urine Bilirubin Small H (NEGATIVE) Urine Urobilinogen 0.2 (0.2-1.0) mg/dL Ur Leukocyte Esterase Negative (NEGATIVE) Urine RBC 0-5 /HPF Urine WBC 0-5 (0-5/HPF) /HPF Ur Epithelial Cells Many H (NOT SEEN) /HPF Amorphous Sediment Few (NOT SEEN) /HPF Urine Bacteria Few (0-FEW/HPF) /HPF Urine Mucus Many H (NOT SEEN) /LPF Meds: Medications Discontinued Medications Generic Name Dose Route Start Last Admin Trade Name Elizabeth PRN Reason Stop Dose Admin Ciprofloxacin 500 mg 06/16/20 15:01 06/16/20 15:09 Ciprofloxacin 500 Mg Tab PO 06/16/20 15:02 500 mg ONETIME ONE Administration Ciprofloxacin/Dextrose 400 mg/ 200 mls @ 200 mls/hr 06/16/20 14:51 Premix IV 06/16/20 15:50 ONETIME ONE Metronidazole 500 mg/ Premix 100 mls @ 100 mls/hr 06/16/20 14:51 IV 06/16/20 15:50 ONETIME ONE Iopamidol 100 ml 06/16/20 13:38 06/16/20 14:24 Iopamidol 612 Mg/Ml 100 Ml Bottle IVPUSH 06/16/20 13:39 100 ml ONETIME ONE Administration Metronidazole 500 mg 06/16/20 15:02 06/16/20 15:09 Metronidazole 250 Mg Tab PO 06/16/20 15:03 500 mg ONETIME ONE Administration - Radiology Interpretation Free Text/Narrative:: Chest xray: PROCEDURE INFORMATION: Exam: XR Chest Exam date and time: 06/16/2020 12:52 PM Age: 49 years old Clinical indication: Chest pain TECHNIQUE: Imaging protocol: XR of the chest Views: 1 view. COMPARISON: No relevant prior studies available. FINDINGS: Lungs: Unremarkable. No consolidation. Pleural spaces: Unremarkable. No pleural effusion. No pneumothorax. Heart/Mediastinum: Unremarkable. No cardiomegaly. Bones/joints: Unremarkable. IMPRESSION: No acute findings. Seen may Thank you for allowing us to participate in the care of your patient. Dictated and Authenticated by: Sukhwinder Mcwilliams MD 06/16/2020 1:03 PM Central Time ([place] & [place]) Abdomen/Pelvis CT with contrast: PROCEDURE INFORMATION: Exam: CT Abdomen And Pelvis With Contrast Exam date and time: 06/16/2020 1:50 PM Age: 49 years old Clinical indication: Abdominal pain; Additional info: Low abdominal pain TECHNIQUE: Imaging protocol: Computed tomography of the abdomen and pelvis with contrast. Radiation optimization: All CT scans at this facility use at least one of these dose optimization techniques: automated exposure control; mA and/or kV adjustment per patient size (includes targeted exams where dose is matched to clinical indication); or iterative reconstruction. Contrast material: [id number]; Contrast volume: 100 ml; Contrast route: INTRAVENOUS (IV); COMPARISON: No relevant prior studies available. FINDINGS: Lungs: Unremarkable.No mass or nodule. Liver: Normal. No mass. Gallbladder and bile ducts: Normal. No calcified stones. No ductal dilation. Pancreas: Normal. No ductal dilation. Spleen: Normal. No splenomegaly. Adrenal glands: Normal. No mass. Kidneys and ureters: Normal. No hydronephrosis. Stomach and bowel: Unremarkable. No obstruction. Short segment of the proximal sigmoid colon demonstrates mural thickening and pericolic fat stranding highly suspect for acute diverticulitis. Appendix: No evidence of appendicitis. Intraperitoneal space: Unremarkable. No free air. No significant fluid collection. Vasculature: Unremarkable. No abdominal aortic aneurysm. Lymph nodes: Unremarkable. No enlarged lymph nodes. Urinary bladder: Unremarkable as visualized. Reproductive: Unremarkable as visualized. Bones/joints: Unremarkable. No acute fracture. Soft tissues: Unremarkable. IMPRESSION: Findings suspicious for acute diverticulitis. No other significant abdominal or pelvic findings. Thank you for allowing us to participate in the care of your patient. Dictated and Authenticated by: Sukhwinder Mcwilliams MD 06/16/2020 2:31 PM Central Time ([place] & [place]) See rad report Departure - Departure Time of Disposition: 15:09 Disposition: Home, Self-Care 01 Reason for Transfer *Q: Other Condition: Fair Clinical Impression: Diverticulitis Instructions: Diverticulitis, [id number] Referrals: Carlos Burgess [Primary Care Provider] - Forms: ED Department Discharge Additional Instructions: RX: Cipro, Flagyl as directed Drink plenty of water Follow up with your primary care facility if no improvement Sepsis Event Note (ED) - Evaluation Sepsis Screening Result: No Definite Risk - Focused Exam Vital Signs: Vital Signs Temp Pulse Resp BP Pulse Ox 06/16/20 12:02 98.3 F 84 20 140/73 100 I have read and agree with the documentation that has been completed regarding this visit. By signing this record, I attest that the documentation was com pleted in my physical presence and is an accurate record of the encounter.
== END 2020-06-16 15:14 | disposition home or self-care (01) ==
LOC: DL.ED 11:52
DX: K57.32 Diverticulitis of large intestine without perforation or abscess without bleeding (principal); E11.9 Type 2 diabetes mellitus without complications; E66.9 Obesity, unspecified; Z88.2 Allergy status to sulfonamides; Z88.1 Allergy status to other antibiotic agents; Z79.899 Other long term (current) drug therapy
CPT/HCPCS: 36415; 71045; 74177; 80053; 81001; 84484; 85025; 93005; 99285; A9270; Q9967; 99284

== ENCOUNTER 2020-08-01 09:12 | Emergency (ER) | payer MEDICAID ==
[2020-08-01 09:43] VITALS: BP 128/69; PULSE 64
--- NOTE | 2020-08-01 10:41 | EDM.PDOC ---
ED HPI GENERAL MEDICAL PROBLEM - General Chief Complaint: Respiratory Problem Stated Complaint: HEADACHE RUNNY NOSE SORE THROAT Time Seen by Provider: 08/01/20 09:40 Source of Information: Reports: Patient, RN, RN Notes Reviewed History Limitations: Reports: No Limitations - History of Present Illness INITIAL COMMENTS - FREE TEXT/NARRATIVE: Patient is a 49-year-old female who presents to ER with complaint of cough, runny nose, sore throat that began a few days ago. She states everyone in the household has become ill with cough and runny nose, sore throat. Patient states she has not tried any [id number] medications. Patient states she has not had COVID-19, and has been vaccinated twice for Covid. Denies fever, chills, nausea, vomiting, diarrhea, chest pains, shortness of breath. Onset: Gradual Throat Pain Score (Numeric/FACES): 6 - Related Data Allergies Allergy/AdvReac Type Severity Reaction Status Date / Time sulfamethoxazole Allergy Stomach Verified 06/16/20 12:01 [From Bactrim] Upset trimethoprim [From Bactrim] Allergy Stomach Verified 06/16/20 12:01 Upset Home Meds: Home Meds Aspirin [Halfprin] 81 mg PO DAILY 08/01/20 [History] Clopidogrel Bisulfate [Plavix] 75 mg PO DAILY 08/01/20 [History] Fish Oil/[place]-3 Fatty Acids [Fish Oil 1,000 MG] 08/01/20 [History] Insulin Detemir [Levemir] 30 units SUBCUT BEDTIME 08/01/20 [History] Rosuvastatin [Crestor] 08/01/20 [History] lisinopriL [Lisinopril] 08/01/20 [History] metFORMIN [Glucophage] 08/01/20 [History] Past Medical History HEENT History: Reports: Impaired Vision Other HEENT History: wears glasses Cardiovascular History: Reports: Other (See Below) Other Cardiovascular History: Ventricular trigeminy Respiratory History: Reports: None Gastrointestinal History: Reports: None 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 History: Reports: 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: Musculoskeletal History: Reports: Other (See Below) Other Musculoskeletal History: Twisted left ankle Neurological History: Reports: Seizure, Other (See Below) Other Neuro History: Argueta's palsy Psychiatric History: Reports: None Endocrine/Metabolic History: Reports: Obesity/BMI 30+ Hematologic History: Reports: None Immunologic History: Reports: None Oncologic (Cancer) History: Reports: None Dermatologic History: Reports: Other (See Below) Other Dermatologic History: Rosacea - Infectious Disease History Infectious Disease History: Reports: Chicken Pox, Mumps - Past Surgical History Cardiovascular Surgical History: Reports: None GI Surgical History: Reports: None Female Surgical History: Reports: None Endocrine Surgical History: Reports: None Neurological Surgical History: Reports: None Musculoskeletal Surgical History: Reports: None Social & Family History - Family History Family Medical History: No Pertinent Family History Cardiac: Reports: CAD, Stent Respiratory: Reports: None GI: Reports: None Neurological: Reports: CVA Endocrine/Metabolic: Reports: Diabetes, type II - Tobacco Use Tobacco Use Status *Q: Never Tobacco User Second Hand Smoke Exposure: No - Caffeine Use Caffeine Use: Reports: None Caffeine Use Comment: states drinks caffeine free soda - Recreational Drug Use Recreational Drug Use: No - Living Situation & Occupation Living situation: Reports: Single, with Family Occupation: Employed ED ROS GENERAL - Review of Systems Review Of Systems: Comprehensive ROS is negative, except as noted in HPI. ED EXAM, GENERAL - Physical Exam Exam: See Below Exam Limited By: No Limitations General Appearance: Alert, WD/WN, No Apparent Distress Eye Exam: Bilateral Eye: EOMI, Normal Inspection Ears: Normal External Exam, Hearing Grossly Normal Nose: Normal Inspection Throat/Mouth: Normal Voice, No Airway Compromise, Other (Mild erythema, tonsils +1-2) Head: Atraumatic, Normocephalic Neck: Normal Inspection, Supple, Non-Tender, Full Range of Motion Respiratory/Chest: No Respiratory Distress, Lungs Clear, Normal Breath Sounds, No Accessory Muscle Use, Chest Non-Tender Cardiovascular: Normal Peripheral Pulses, Regular Rate, Rhythm, No Edema, No Gallop, No JVD, No Murmur, No Rub GI/Abdominal: Normal Bowel Sounds, Soft, Non-Tender (Female) Exam: Deferred Rectal (Female) Exam: Deferred Back Exam: Normal Inspection, Full Range of Motion, NT Extremities: Normal Inspection, Normal Range of Motion, Non-Tender, Normal Capillary Refill, No Pedal Edema Neurological: Alert, Oriented, CN II-XII Intact, Normal Cognition, Normal Gait, Normal Reflexes, No Motor/Sensory Deficits Psychiatric: Normal Affect, Normal Mood Skin Exam: Warm, Dry, Intact, Normal Color, No Rash Lymphatic: No Adenopathy Course - Vital Signs Last Recorded V/S: Last Vital Signs Temp 97.6 F 08/01/20 09:28 Pulse 64 08/01/20 09:28 Resp 18 08/01/20 09:28 BP 128/69 08/01/20 09:28 Pulse Ox 99 08/01/20 09:28 - Orders/Labs/Meds Orders: Active Orders 24 hr Category Date Time Status COVID-19/FLU A+B [MOLEC] Stat Lab 08/01/20 09:55 Ordered CULTURE STREP A CONFIRMATION [RM] Stat Lab 08/01/20 09:55 Results STREP SCRN A RAPID W CULT CONF [RM] Stat Lab 08/01/20 09:55 Results Departure - Departure Time of Disposition: 11:32 Disposition: Home, Self-Care 01 Condition: Good Clinical Impression: Viral upper respiratory infection - Discharge Information *PRESCRIPTION DRUG MONITORING PROGRAM REVIEWED*: No *COPY OF PRESCRIPTION DRUG MONITORING REPORT IN PATIENT LANA: No Instructions: Upper Respiratory Infection, Adult, Sref-nu-Rcla, Viral Respiratory Infection, [id number] Forms: ED Department Discharge Additional Instructions: May use lveo-[id number] Robitussin for cough May use [id number] cold and cough medication as directed May use Tylenol and/or ibuprofen as directed for pain/fever Follow-up with your primary care provider if no improvement Sepsis Event Note (ED) - Evaluation Sepsis Screening Result: No Definite Risk - Focused Exam Vital Signs: Vital Signs Temp Pulse Resp BP Pulse Ox 08/01/20 09:28 97.6 F 64 18 128/69 99 - My Orders Last 24 Hours: My Active Orders 08/01/20 09:55 COVID-19/FLU A+B [MOLEC] Stat CULTURE STREP A CONFIRMATION [RM] Stat STREP SCRN A RAPID W CULT CONF [RM] Stat - Assessment/Plan Last 24 Hours: My Active Orders 08/01/20 09:55 COVID-19/FLU A+B [MOLEC] Stat CULTURE STREP A CONFIRMATION [RM] Stat STREP SCRN A RAPID W CULT CONF [RM] Stat
== END 2020-08-01 11:49 | disposition home or self-care (01) ==
LOC: DL.ED 09:12
DX: J06.9 Acute upper respiratory infection, unspecified (principal); E66.9 Obesity, unspecified; Z79.82 Long term (current) use of aspirin; Z79.01 Long term (current) use of anticoagulants; Z88.1 Allergy status to other antibiotic agents; Z68.42 Body mass index [BMI] 45.0-49.9, adult
CPT/HCPCS: 87081; 87430; 99283

== ENCOUNTER 2021-03-22 10:41 | Emergency (ER) | payer MEDICAID | END 2021-03-22 11:30 | LOC: DL.ED 10:41 | DX: Z53.21 Procedure and treatment not carried out due to patient leaving prior to being seen by health care provider (principal) ==

== ENCOUNTER 2021-10-21 11:33 | Emergency (ER) | payer MEDICAID ==
[2021-10-21 14:35] LABS: ANION GAP 11.4 mEq/L (7-13); CHLORIDE,CL 104 mmol/L (98-107); SODIUM,NA 143 mmol/L (136-145)
[2021-10-21 14:37] LABS: ESTIMATED GFR 76 mL/min (>=60)
[2021-10-21 15:20] VITALS: BP 94/65; PULSE 76
== END 2021-10-21 14:58 | disposition home or self-care (01) ==
LOC: DL.ED 11:33
DX: R10.2 Pelvic and perineal pain (principal); E66.9 Obesity, unspecified; Z68.42 Body mass index [BMI] 45.0-49.9, adult; Z88.2 Allergy status to sulfonamides; Z79.899 Other long term (current) drug therapy; Z79.82 Long term (current) use of aspirin; Z79.4 Long term (current) use of insulin; Z79.84 Long term (current) use of oral hypoglycemic drugs; Z20.822 Contact with and (suspected) exposure to COVID-19
CPT/HCPCS: 36415; 80053; 81003; 83735; 85025; 86140; 93005; 93010; 99284; U0002

== ENCOUNTER 2021-12-08 12:04 | Emergency (ER) | payer MEDICAID ==
[2021-12-08 12:27] VITALS: BP 133/67; PULSE 77
[2021-12-08] MEDS ORDERED: Sodium Chloride 0.9% 10 ML Syringe FLUSH PRN (12:40)
[2021-12-08 13:20] LABS: ANION GAP 8.3 mEq/L (7-13)
[2021-12-08] MEDS ORDERED: Ondansetron 4 MG Tab.DIS PO ONE (14:54)
[2021-12-08] MEDS ORDERED: Ketorolac 30 MG/ML SDV IM ONE (14:54)
[2021-12-08] MEDS ORDERED: Acetaminophen/HYDROcodone 325-10 MG Tab PO ONE (14:55)
== END 2021-12-08 15:28 | disposition home or self-care (01) ==
LOC: DL.ED 12:04
DX: R56.9 Unspecified convulsions (principal); R51.9 Headache, unspecified; E66.9 Obesity, unspecified; Z68.42 Body mass index [BMI] 45.0-49.9, adult; Z88.2 Allergy status to sulfonamides; Z79.899 Other long term (current) drug therapy; Z79.82 Long term (current) use of aspirin; Z79.84 Long term (current) use of oral hypoglycemic drugs
CPT/HCPCS: 36415; 71045; 80053; 81003; 82150; 83690; 83735; 84484; 85025; 93005; 96372; 99284; A9270-GY; J1885

== ENCOUNTER 2022-01-12 09:18 | Emergency (ER) | payer MEDICAID ==
[2022-01-12] MEDS ORDERED: Ciprofloxacin 500 MG Tab PO ONE (22:00)
[2022-01-12] MEDS ORDERED: Lidocaine 1% 10 ML MDV IM ONE (22:00)
[2022-01-12] MEDS ORDERED: cefTRIAXone 1 GM Vial IV ONE (22:00)
[2022-01-12] MEDS ORDERED: Phenazopyridine 95 MG Tab PO ONE ×2 (22:00)
== END 2022-01-12 22:29 | disposition home or self-care (01) ==
LOC: DL.ED 09:18
DX: N30.01 Acute cystitis with hematuria (principal); E11.9 Type 2 diabetes mellitus without complications
CPT/HCPCS: 81001; 81003; 87086; 87088; 87186; 96372; 99283

== ENCOUNTER 2022-01-16 11:00 | Emergency (ER) | payer MEDICAID ==
[2022-01-16] MEDS ORDERED: Iopamidol 612 MG/ML 100 ML Bottle IV ONE (13:02)
[2022-02-09 13:46] LABS: ANION GAP 9.8 mEq/L (7-13); CHLORIDE,CL 103 mmol/L (98-107); ESTIMATED GFR 75 mL/min (>=60); SODIUM,NA 140 mmol/L (136-145)
== END 2022-01-16 14:10 | disposition home or self-care (01) ==
LOC: DL.ED 11:00
DX: N32.89 Other specified disorders of bladder (principal); E11.9 Type 2 diabetes mellitus without complications; I10 Essential (primary) hypertension; Z88.1 Allergy status to other antibiotic agents
CPT/HCPCS: 36415; 74177; 80053; 81001; 83605; 84439; 84443; 85025; 86140; 87210; 99284; Q9967

== ENCOUNTER 2022-01-26 12:42 | Emergency (ER) | payer MEDICAID ==
[2022-01-26] MEDS ORDERED: Sodium Chloride 0.9% 10 ML Syringe FLUSH PRN (13:43)
[2022-01-26] MEDS ORDERED: Ondansetron 4 MG/2 ML SDV IVPUSH ONE (14:00)
[2022-01-26 14:27] VITALS: BP 130/82; PULSE 77
[2022-01-26 14:31] LABS: ANION GAP 10.7 mEq/L (7-13); CHLORIDE,CL 101 mmol/L (98-107); SODIUM,NA 139 mmol/L (136-145)
[2022-01-26 14:33] LABS: ESTIMATED GFR 77 mL/min (>=60)
[2022-01-26] MEDS ORDERED: Iopamidol 612 MG/ML 100 ML Bottle IVPUSH ONE (14:39)
[2022-01-26] MEDS ORDERED: Ketorolac 30 MG/ML SDV IVPUSH ONE (15:43)
[2022-01-26] MEDS ORDERED: GI Cocktail Oral Solution 30 ML PO ONE (16:12)
[2022-01-26] MEDS ORDERED: Simethicone 80 MG Tab.Chew PO ONE (16:12)
== END 2022-01-26 17:19 | disposition home or self-care (01) ==
LOC: DL.ED 12:42
DX: R56.9 Unspecified convulsions (principal); R10.9 Unspecified abdominal pain; E66.9 Obesity, unspecified; Z68.42 Body mass index [BMI] 45.0-49.9, adult; Z88.2 Allergy status to sulfonamides; Z79.899 Other long term (current) drug therapy; Z79.4 Long term (current) use of insulin; Z79.84 Long term (current) use of oral hypoglycemic drugs
CPT/HCPCS: 36415; 70450; 71045; 74177; 80053; 81003; 82150; 83605; 83690; 83735; 84145; 84484; 85025; 86140; 93005; 96374; 96375; 99285; A9270; J1885; J2405; J3490; Q9967

== ENCOUNTER 2022-05-16 10:42 | Emergency (ER) | payer MEDICAID ==
[2022-05-16 11:44] VITALS: BP 124/71; PULSE 72
== END 2022-05-16 12:18 | disposition home or self-care (01) ==
LOC: DL.ED 10:42
DX: B37.31 Acute candidiasis of vulva and vagina (principal); R30.0 Dysuria; E66.9 Obesity, unspecified; Z88.1 Allergy status to other antibiotic agents; Z79.82 Long term (current) use of aspirin; Z79.02 Long term (current) use of antithrombotics/antiplatelets; Z68.42 Body mass index [BMI] 45.0-49.9, adult
CPT/HCPCS: 81003; 99283

== ENCOUNTER 2022-05-29 10:20 | Emergency (ER) | payer MEDICAID ==
[~2022-05-29 10:20] MED LIST: Acetaminophen 500 MG Tab PO ONE; levETIRAcetam in NaCl (iso-os) 1,500 MG in Premix Bag 1 BAG IV ONE
== END 2022-05-29 10:34 | disposition home or self-care (01) ==
LOC: DL.ED 10:20
DX: S09.90XA Unspecified injury of head, initial encounter (principal); E66.9 Obesity, unspecified; Z68.30 Body mass index [BMI] 30.0-30.9, adult; Z88.1 Allergy status to other antibiotic agents; Z79.82 Long term (current) use of aspirin; Z86.16 Personal history of COVID-19; Z79.899 Other long term (current) drug therapy; W00.0XXA Fall on same level due to ice and snow, initial encounter
CPT/HCPCS: 70450; 72125; 99283; 99284; A9270

== ENCOUNTER 2022-09-10 13:58 | Emergency (ER) | payer MEDICAID ==
[2022-09-10 15:00] VITALS: BP 118/83; PULSE 80
[2022-09-10] MEDS ORDERED: Ketorolac 30 MG/ML SDV IM ONE (16:22)
[2022-09-10] MEDS ORDERED: Metoclopramide 10 MG Tab PO ONE (16:23)
== END 2022-09-10 16:38 | disposition home or self-care (01) ==
LOC: DL.ED 13:58
DX: G43.909 Migraine, unspecified, not intractable, without status migrainosus (principal); E66.9 Obesity, unspecified; Z68.41 Body mass index [BMI] 40.0-44.9, adult; Z88.2 Allergy status to sulfonamides; Z86.16 Personal history of COVID-19; Z79.899 Other long term (current) drug therapy
CPT/HCPCS: 70450; 96372; 99284; A9270-GY; J1885

== ENCOUNTER 2022-09-13 11:23 | Emergency (ER) | payer MEDICAID ==
[2022-09-13] MEDS ORDERED: Sodium Chloride 0.9% 1,000 ML IV ONE ×2 (11:35→12:55)
[2022-09-13] MEDS ORDERED: Sodium Chloride 0.9% 10 ML Syringe FLUSH PRN (11:35)
[2022-09-13] MEDS ORDERED: Ondansetron 4 MG/2 ML SDV IV ONE ×2 (11:35→12:54)
[2022-09-13] MEDS ORDERED: Famotidine 20 MG/2 ML SDV IVPUSH ONE (11:36)
[2022-09-13] MEDS ORDERED: Acetaminophen 500 MG Tab PO ONE (11:48)
[2022-09-13 11:49] LABS: BASOPHILS PERCENT AUTO 0.1 % (0.0-1.0); EOSINOPHILS PERCENT AUTO 0.5 % (1.0-3.0); HEMATOCRIT 45.8 % (37.0-47.0); HEMOGLOBIN 15.1 g/dL (12.0-16.0); LYMPHOCYTES PERCENT AUTO 9.8 % (20.5-50.1); MEAN CORPUSCULAR HEMOGLOBIN 29.4 pg (27.0-34.0); MEAN CORPUSCULAR VOLUME 89.1 fL (80-100); MONOCYTES PERCENT AUTO 2.2 % (2-8); NEUTROPHILS PERCENT AUTO 87.4 % (42.2-75.2); PLATELET COUNT,PLT 269 10^3/uL (150-450); RED BLOOD CELL COUNT 5.14 10^6/uL (4.2-5.4); WHITE BLOOD CELL COUNT,WBC 12.3 10^3/uL (5.0-10.0)
[2022-09-13 11:55] LABS: APPEARANCE,URINE TURBID (CLEAR); BILIRUBIN,URINE SMALL (NEGATIVE); COLOR,URINE DARK YELLOW (YELLOW); GLUCOSE,URINE >=1000 (NEGATIVE); KETONES,URINE NEGATIVE (NEGATIVE); LEUKOCYTE ESTERASE,URINE TRACE (NEGATIVE); NITRITE,URINE NEGATIVE (NEGATIVE); OCCULT BLOOD,URINE NEGATIVE (NEGATIVE); PROTEIN,URINE NEGATIVE (NEGATIVE)
[2022-09-13 11:58] VITALS: BP 148/64; PULSE 111
[2022-09-13 12:06] LABS: EPITHELIAL CELLS,URINE FEW /HPF (NOT SEEN)
[2022-09-13 12:07] LABS: BACTERIA,URINE RARE /HPF (0-FEW/HPF); RBC,URINE 0-5 /HPF (0-5); WBC,URINE 0-5 /HPF (0-5/HPF); YEAST,URINE FEW /HPF (NOT SEEN)
[2022-09-13 12:18] LABS: ALBUMIN 3.3 g/dL (3.4-5.0); ANION GAP 13.7 mEq/L (7-13); BILIRUBIN TOTAL 2.7 mg/dL (0.2-1.0); CALCIUM 9.3 mg/dL (8.5-10.1); EST CRCL DRUG DOSING (CG) 54.44 mL/min; POTASSIUM,K 3.7 mmol/L (3.5-5.1); PROTEIN TOTAL,TP 8.1 g/dL (6.4-8.2)
[2022-09-13 12:21] LABS: LACTIC ACID 2.4 mmol/L (0.4-2.0)
[2022-09-13 12:27] LABS: A/G RATIO 0.69
[2022-09-13] MEDS ORDERED: HYDROmorphone 1 MG/ML Syringe IVPUSH ONE (12:54)
[2022-09-13] MEDS ORDERED: Iopamidol 612 MG/ML 100 ML Bottle IVPUSH ONE (12:54)
[2022-09-13] MEDS ORDERED: Piperacillin/Tazobactam 4.5 GM in Sodium Chloride 0.9% 100 ML IV ONE (13:24)
== END 2022-09-13 15:04 ==
LOC: DL.ED 11:23
DX: K80.63 Calculus of gallbladder and bile duct with acute cholecystitis with obstruction (principal); K85.10 Biliary acute pancreatitis without necrosis or infection; E66.9 Obesity, unspecified; Z68.41 Body mass index [BMI] 40.0-44.9, adult; Z88.2 Allergy status to sulfonamides; Z86.16 Personal history of COVID-19; Z20.822 Contact with and (suspected) exposure to COVID-19
CPT/HCPCS: 36415; 71045; 74177; 80053; 81001; 82150; 83605; 83690; 84145; 84484; 85025; 87040; 87086; 87088; 87186; 87804; 93005; 93010; 96361; 96365; 96375; 96376; 99285; 99285-25; A9270-GY; J1170; J2405; J2543; J3490; J7030; Q9967; U0002

== ENCOUNTER 2022-09-18 03:47 | Emergency (ER) | payer MEDICAID ==
[2022-09-18 05:34] VITALS: BP 157/98; PULSE 74
== END 2022-09-18 06:53 | disposition home or self-care (01) ==
LOC: DL.ED 03:47
DX: R60.0 Localized edema (principal); E66.9 Obesity, unspecified; Z68.30 Body mass index [BMI] 30.0-30.9, adult; Z88.1 Allergy status to other antibiotic agents; Z86.16 Personal history of COVID-19; Z79.82 Long term (current) use of aspirin; Z79.02 Long term (current) use of antithrombotics/antiplatelets; Z79.84 Long term (current) use of oral hypoglycemic drugs
CPT/HCPCS: 36415; 83880; 99283

== ENCOUNTER 2024-04-22 12:57 | Emergency (ER) | payer BC, MEDICAID ==
[2024-04-22] MEDS ORDERED: Sodium Chloride 0.9% 10 ML Syringe FLUSH PRN ×2 (13:05)
[2024-04-22 13:23] LABS: BASOPHILS PERCENT AUTO 0.4 % (0.0-1.0); EOSINOPHILS PERCENT AUTO 4.4 % (1.0-3.0); HEMATOCRIT 44.2 % (37.0-47.0); HEMOGLOBIN 13.8 g/dL (12.0-16.0); LYMPHOCYTES PERCENT AUTO 37.4 % (20.5-50.1); MEAN CORPUSCULAR HGB CONC 31.2 g/dL (33.0-35.0); MEAN CORPUSCULAR VOLUME 89.7 fL (80-100); MONOCYTES PERCENT AUTO 6.5 % (2-8); NEUTROPHILS PERCENT AUTO 51.3 % (42.2-75.2); PLATELET COUNT,PLT 245 10^3/uL (150-450); RED BLOOD CELL COUNT 4.93 10^6/uL (4.2-5.4); WHITE BLOOD CELL COUNT,WBC 8.3 10^3/uL (5.0-10.0)
[2024-04-22 13:38] LABS: PROTHROMBIN TIME 10.7 SEC (9.0-12.0)
[2024-04-22 13:45] LABS: A/G RATIO 0.8; ALBUMIN 3.5 g/dL (3.4-5.0); ANION GAP 12.6 mEq/L (7-13); BILIRUBIN TOTAL 0.3 mg/dL (0.2-1.0); BUN/CREATININE RATIO 19.4 (No establ ref range); CALCIUM 9.2 mg/dL (8.5-10.1); CREATININE 0.93 mg/dL (0.55-1.02); EST CRCL DRUG DOSING (CG) 57.2 mL/min; POTASSIUM,K 3.6 mmol/L (3.5-5.1)
[2024-04-22 14:06] VITALS: BP 116/60
[2024-04-22 15:55] VITALS: PULSE 76
== END 2024-04-22 15:54 | disposition home or self-care (01) ==
LOC: DL.ED 12:57
DX: R07.9 Chest pain, unspecified (principal); I50.9 Heart failure, unspecified; E66.9 Obesity, unspecified; Z86.16 Personal history of COVID-19; Z79.84 Long term (current) use of oral hypoglycemic drugs; Z79.899 Other long term (current) drug therapy; Z79.82 Long term (current) use of aspirin; Z79.02 Long term (current) use of antithrombotics/antiplatelets; Z88.2 Allergy status to sulfonamides; Z68.41 Body mass index [BMI] 40.0-44.9, adult
CPT/HCPCS: 36415; 71045; 80053; 84484; 85025; 85610; 93005; 99285

== ENCOUNTER 2024-05-31 09:25 | Emergency (ER) | payer BC, MEDICAID ==
[2024-05-31 09:30] VITALS: BP 170/65; PULSE 80
== END 2024-05-31 09:55 ==
LOC: DL.ED 09:25
DX: K04.7 Periapical abscess without sinus (principal); I50.9 Heart failure, unspecified; Z88.2 Allergy status to sulfonamides; Z88.8 Allergy status to other drugs, medicaments and biological substances; Z79.82 Long term (current) use of aspirin; Z79.84 Long term (current) use of oral hypoglycemic drugs; Z79.899 Other long term (current) drug therapy; Z79.85 Long-term (current) use of injectable non-insulin antidiabetic drugs; Z86.16 Personal history of COVID-19; Z90.49 Acquired absence of other specified parts of digestive tract
CPT/HCPCS: 99282; 99284

== ENCOUNTER 2024-06-02 11:46 | Emergency (ER) | payer BC, MEDICAID ==
[2024-06-02 12:45] VITALS: BP 134/86; PULSE 76
== END 2024-06-02 12:45 | disposition home or self-care (01) ==
LOC: DL.ED 11:46
DX: K04.7 Periapical abscess without sinus (principal); I50.9 Heart failure, unspecified; E66.9 Obesity, unspecified; Z86.16 Personal history of COVID-19; Z90.49 Acquired absence of other specified parts of digestive tract; Z88.2 Allergy status to sulfonamides; Z79.82 Long term (current) use of aspirin; Z79.899 Other long term (current) drug therapy; Z79.84 Long term (current) use of oral hypoglycemic drugs; Z68.41 Body mass index [BMI] 40.0-44.9, adult
CPT/HCPCS: 99282

== ENCOUNTER 2024-06-20 09:20 | Emergency (ER) | payer BC, MEDICAID ==
[2024-06-20 10:55] LABS: BASOPHILS PERCENT AUTO 0.5 % (0.0-1.0); EOSINOPHILS PERCENT AUTO 4.8 % (1.0-3.0); HEMATOCRIT 43.9 % (37.0-47.0); LYMPHOCYTES PERCENT AUTO 38.8 % (20.5-50.1); MEAN CORPUSCULAR HEMOGLOBIN 28.1 pg (27.0-34.0); MEAN CORPUSCULAR HGB CONC 31.9 g/dL (33.0-35.0); MEAN CORPUSCULAR VOLUME 88.2 fL (80-100); NEUTROPHILS PERCENT AUTO 48.9 % (42.2-75.2); PLATELET COUNT,PLT 266 10^3/uL (150-450); RED BLOOD CELL COUNT 4.98 10^6/uL (4.2-5.4); WHITE BLOOD CELL COUNT,WBC 8.8 10^3/uL (5.0-10.0)
[2024-06-20 11:19] LABS: A/G RATIO 0.8; ALBUMIN 3.6 g/dL (3.4-5.0); ANION GAP 9.9 mEq/L (7-13); BILIRUBIN TOTAL 0.4 mg/dL (0.2-1.0); BUN/CREATININE RATIO 16.9 (No establ ref range); CALCIUM 9.4 mg/dL (8.5-10.1); CREATININE 0.89 mg/dL (0.55-1.02); EST CRCL DRUG DOSING (CG) 59.78 mL/min; POTASSIUM,K 3.9 mmol/L (3.5-5.1); PROTEIN TOTAL,TP 8.1 g/dL (6.4-8.2)
[2024-06-20] MEDS: Iopamidol 612 MG/ML 100 ML Bottle IVPUSH ONE (11:25)
[2024-06-20 13:16] VITALS: BP 147/75; PULSE 85
== END 2024-06-20 13:14 | disposition home or self-care (01) ==
LOC: DL.ED 09:20
DX: K02.9 Dental caries, unspecified (principal); I50.9 Heart failure, unspecified; Z88.2 Allergy status to sulfonamides; Z79.82 Long term (current) use of aspirin; Z79.02 Long term (current) use of antithrombotics/antiplatelets; Z79.84 Long term (current) use of oral hypoglycemic drugs; Z79.85 Long-term (current) use of injectable non-insulin antidiabetic drugs
CPT/HCPCS: 36415; 70450; 70491; 80053; 85025; 99282; 99283; Q9967

== ENCOUNTER 2024-08-30 11:28 | Emergency (ER) | payer BC, MEDICAID, OTHER ==
[2024-08-30] MEDS ORDERED: Ondansetron 4 MG/2 ML SDV IVPUSH PRN (11:36)
[2024-08-30] MEDS ORDERED: Sodium Chloride 0.9% 10 ML Syringe FLUSH PRN (11:36)
[2024-08-30] MEDS: LORazepam 2 MG/ML SDV IVPUSH ONE (11:51)
[2024-08-30] MEDS: Sodium Chloride 0.9% 1,000 ML IV SCH (11:59)
[2024-08-30 12:06] LABS: BASOPHILS PERCENT AUTO 0.3 % (0.0-1.0); EOSINOPHILS PERCENT AUTO 4.5 % (1.0-3.0); HEMATOCRIT 40.2 % (37.0-47.0); HEMOGLOBIN 12.9 g/dL (12.0-16.0); LYMPHOCYTES PERCENT AUTO 33.1 % (20.5-50.1); MEAN CORPUSCULAR HEMOGLOBIN 28.2 pg (27.0-34.0); MEAN CORPUSCULAR HGB CONC 32.1 g/dL (33.0-35.0); MEAN CORPUSCULAR VOLUME 87.8 fL (80-100); MONOCYTES PERCENT AUTO 8.1 % (2-8); PLATELET COUNT,PLT 204 10^3/uL (150-450); RED BLOOD CELL COUNT 4.58 10^6/uL (4.2-5.4); WHITE BLOOD CELL COUNT,WBC 8.7 10^3/uL (5.0-10.0)
[2024-08-30 12:26] LABS: ANION GAP 7.1 mEq/L (7-13); BILIRUBIN TOTAL 0.2 mg/dL (0.2-1.0); BUN/CREATININE RATIO 16.7 (No establ ref range); CALCIUM 8.8 mg/dL (8.5-10.1); CREATININE 0.78 mg/dL (0.55-1.02); EST CRCL DRUG DOSING (CG) 68.21 mL/min; POTASSIUM,K 4.1 mmol/L (3.5-5.1); PROTEIN TOTAL,TP 6.9 g/dL (6.4-8.2)
[2024-08-30 12:28] LABS: A/G RATIO 0.77
[2024-08-30 12:29] LABS: LACTIC ACID 1.3 mmol/L (0.4-2.0)
[2024-08-30 12:44] LABS: APPEARANCE,URINE CLEAR (CLEAR); BILIRUBIN,URINE NEGATIVE (NEGATIVE); COLOR,URINE YELLOW (YELLOW); GLUCOSE,URINE 250 (NEGATIVE); KETONES,URINE NEGATIVE (NEGATIVE); LEUKOCYTE ESTERASE,URINE TRACE (NEGATIVE); NITRITE,URINE NEGATIVE (NEGATIVE); OCCULT BLOOD,URINE NEGATIVE (NEGATIVE); PH,URINE 5.5 (5.0-9.0); PROTEIN,URINE NEGATIVE (NEGATIVE); UROBILINOGEN,URINE 0.2 mg/dL (0.2-1.0)
[2024-08-30] MEDS: Iopamidol 612 MG/ML 100 ML Bottle IVPUSH ONE (13:00)
[2024-08-30 13:03] LABS: BACTERIA,URINE FEW /HPF (0-FEW/HPF); EPITHELIAL CELLS,URINE FEW /HPF (NOT SEEN); MUCUS,URINE FEW /LPF (NOT SEEN); RBC,URINE 0-5 /HPF (0-5)
[2024-08-30] MEDS ORDERED: Pantoprazole 40 MG in Sodium Chloride 0.9% 100 ML IV ONE (13:32)
[2024-08-30] MEDS: Pantoprazole 40 MG Vial IVPUSH ONE (14:24)
[2024-08-30] MEDS: Ketorolac 30 MG/ML SDV IVPUSH ONE (14:26)
[2024-08-30 15:02] VITALS: BP 138/67; PULSE 98
== END 2024-08-30 14:42 | disposition home or self-care (01) ==
LOC: DL.ED 11:28
DX: N30.00 Acute cystitis without hematuria (principal); R59.0 Localized enlarged lymph nodes; R29.90 Unspecified symptoms and signs involving the nervous system; E66.9 Obesity, unspecified; Z88.2 Allergy status to sulfonamides; Z88.8 Allergy status to other drugs, medicaments and biological substances; Z79.82 Long term (current) use of aspirin; Z79.84 Long term (current) use of oral hypoglycemic drugs; Z79.899 Other long term (current) drug therapy; Z90.49 Acquired absence of other specified parts of digestive tract
CPT/HCPCS: 36415; 70450; 74177; 80053; 81001; 83605; 83690; 84484; 85025; 87086; 93005; 96361; 96374; 96375; 99285; J1885; J2060; J2470; J7030; Q9967; 87088; 87186; 93010; 99284